=== PATIENT | male | born 1960 | race Caucasian/White ===

== ENCOUNTER → 2020-04-10 | Outpatient (CLI) | payer BC ==
[2020-04-10 11:55] LABS: HCT 45.5 % (39.0-53.0); HGB 15.3 gm/dL (13.0-17.5); MCH 32.5 pg (25.0-35.0); MCHC 33.5 g/dL (31.0-37.0); MCV 96.9 fL (80.0-100.0); Mean Platelet Volume 8.1; Platelet Count 234 k/uL (150-450); RDW 12.8 % (11.5-15.5); WBC 8.2 k/uL (3.8-10.6)
[2020-04-10 18:24] LABS: African American GFR (CKD) 109.5 (60.0-200.0); Albumin 3.9 g/dL (3.80-4.90); Albumin/Globulin Ratio 1.7 (1.60-3.17); Anion Gap 1.6 mmol/L (4.00-12.00); BUN/Creat Ratio 13.33 Ratio (12.00-20.00); Calcium 8.8 mg/dL (8.7-10.3); Carbon Dioxide 29.4 mmol/L (21.6-31.8); Globulin 2.3 g/dL (1.6-3.3); Non-African American GFR(CKD) 94.5 (60.0-200.0); Potassium 5.1 mmol/L (3.5-5.5); Total Bilirubin 0.5 mg/dL (0.2-1.2); Total Protein 6.2 g/dL (6.2-8.2)
[2020-04-10 18:25] LABS: Chol/HDL Ratio 3.83
[2020-04-10 18:53] LABS: T4, Free (Free Thyroxine) 0.9 ng/dL (0.80-1.80)
== END | disposition home or self-care (01) ==
LOC: LABWHC1 10:01
PROVIDERS: ATTEND Internal Medicine
DX: R42 Dizziness and giddiness (principal); R53.83 Other fatigue
CPT/HCPCS: 36415; 80053; 80061; 84439; 84443; 85027

== ENCOUNTER → 2020-05-03 | Outpatient (CLI) | payer BC ==
--- NOTE | 2020-05-03 16:55 | US ---
EXAMINATION TYPE: US carotid duplex BILAT DATE OF EXAM: 05/03/2020 COMPARISON: NONE CLINICAL HISTORY: R55.9 SYNCOPE, R53.82 FATIGUE. Syncope, fatigue, dizziness EXAM MEASUREMENTS: RIGHT: Peak Systolic Velocity (PSV) cm/sec ----- Right CCA: 84.1 ----- Right ICA: 77.2 ----- Right ECA: 117.9 ICA/CCA ratio: 0.9 RIGHT: End Diastole cm/sec ----- Right CCA: 23.2 ----- Right ICA: 33.0 ----- Right ECA: 18.2 LEFT: Peak Systolic Velocity (PSV) cm/sec ----- Left CCA: 90.7 ----- Left ICA: 64.6 ----- Left ECA: 103.4 ICA/CCA ratio: 0.7 LEFT: End Diastole cm/sec ----- Left CCA: 27.2 ----- Left ICA: 33.9 ----- Left ECA: 18.2 VERTEBRALS (direction of flow): Right Vertebral: Antegrade Left Vertebral: Antegrade Rhythm: Normal Bilateral intimal thickening. IMPRESSION: No evidence of hemodynamically significant stenosis bilaterally. Criteria for Assigning % of Stenosis / Diameter reduction (Estimation based on the indirect measurements of the internal carotid artery velocities (ICA PSV). 1. Normal (no stenosis)=ICA PSV < 125 cm/s: ratio < 2.0: ICA EDV<40 cm/s. 2. Less than 50% stenosis=ICA PSV < 125 cm/s: ratio < 2.0: ICA EDV<40 cm/s. 3. 50 to 69% stenosis=ICA PSV of 125 to 230 cm/s: ration 2.0 ? 4.0: ICA EDV 40-100 cm/s. 4. Greater than 70% stenosis to near occlusion= ICA PSV > 230 cm/s: ratio > 4.0: ICA EDV > 100 cm/s. 5. Near occlusion= ICA PSV velocities may be low or undetectable: variable ratio and ICA EDV. 6. Total occlusion=unable to detect flow.
--- NOTE | 2020-05-04 10:00 | ECHOF ---
Referral Reason:R55.9 syncope MEASUREMENTS -------- HEIGHT: 180.3 cm WEIGHT: 134.3 kg BP: 147/77 RVIDd: 3.3 cm (< 3.3) IVSd: 1.1 cm (0.6 - 1.1) LVIDd: 4.5 cm (3.9 - 5.3) LVPWd: 1.2 cm (0.6 - 1.1) IVSs: 1.8 cm LVIDs: 2.7 cm LVPWs: 1.2 cm LA Diam: 3.0 cm (2.7 - 3.8) LAESV Index (A-L): 18.29 ml/m Ao Diam: 3.7 cm (2.0 - 3.7) AV Cusp: 2.5 cm (1.5 - 2.6) MV EXCURSION: 21.171 mm (> 18.000) MV EF SLOPE: 100 mm/s (70 - 150) EPSS: 0.3 cm MV E Harley: 0.82 m/s MV DecT: 177 ms MV A Harley: 1.03 m/s MV E/A Ratio: 0.80 RAP: 5.00 mmHg RVSP: 27.32 mmHg FINDINGS -------- Sinus rhythm. This was a technically adequate study. The left ventricular size is normal. There is borderline concentric left ventricular hypertrophy. Overall left ventricular systolic function is normal with, an EF between 60 - 65 %. The right ventricle is mildly enlarged. Normal LA size by volume 22+/-6 ml/m2. The right atrium is normal in size. The aortic valve is trileaflet and appears structurally normal. The mitral valve is normal. Mild tricuspid regurgitation present. Right ventricular systolic pressure is normal at < 35 mmHg. Trace/mild (physiologic) pulmonic regurgitation. The aortic root size is normal. IVC Not well visulized. There is no pericardial effusion. CONCLUSIONS -------- 1. Sinus rhythm. 2. The left ventricular size is normal. 3. There is borderline concentric left ventricular hypertrophy. 4. Overall left ventricular systolic function is normal with, an EF between 60 - 65 %. 5. The right ventricle is mildly enlarged. 6. The aortic valve is trileaflet and appears structurally normal. 7. Mild tricuspid regurgitation present. 8. Right ventricular systolic pressure is normal at < 35 mmHg. 9. Trace/mild (physiologic) pulmonic regurgitation. 10. The aortic root size is normal. 11. There is no pericardial effusion. SCRIPT READER: Falguni Breen RDCS
== END | disposition home or self-care (01) ==
LOC: RADECHMAIN 13:37
PROVIDERS: ATTEND Internal Medicine
DX: R55 Syncope and collapse (principal); R53.82 Chronic fatigue, unspecified
CPT/HCPCS: 93306; 93880

== ENCOUNTER 2021-08-25 12:14 | Emergency (ER) | payer BC ==
--- NOTE | 2021-08-25 13:09 | XR ---
EXAMINATION TYPE: XR chest 2V DATE OF EXAM: 08/25/2021 COMPARISON: 07/18/2021 INDICATION: Cough TECHNIQUE: Frontal and lateral views of the chest are obtained. FINDINGS: The heart size is normal. The pulmonary vasculature is normal. No suspicious focal consolidations are evident.. Some mild scattered lower lung field infiltrates ma y be present. Correlate for atypical pneumonia or atelectasis. Findings are nonspecific. IMPRESSION: 1. Minimal bilateral lower lung field nonspecific increased lung markings. Consider atypical pneumoni a and atelectasis within the differential.
[2021-08-25] MEDS ORDERED: SODIUM CHLORIDE 0.9% 500 ML 500 ML IV STA (13:25)
[2021-08-25] MEDS ORDERED: ACETAMINOPHEN TAB 500 MG TAB PO STA (14:00)
[2021-08-25] MEDS ORDERED: KETOROLAC 15 MG/ML 1 ML VIAL IVP STA (14:00)
[2021-08-25] MEDS ORDERED: BENZONATATE 100 MG CAP PO STA (14:01)
--- NOTE | 2021-08-25 14:02 | ED ---
URI HPI - General Source: patient, RN notes reviewed Mode of arrival: ambulatory Limitations: no limitations <Damian Trammell - Last Filed: 08/25/21 14:01> <Ramesh Pinon - Last Filed: 08/25/21 16:02> - General Chief Complaint: Upper Respiratory Infection Stated Complaint: covid+/cough/lung pain Time Seen by Provider: 08/25/21 13:10 - History of Present Illness Initial Comments: This a 61-year-old male presents emergency Department chief complaint of left- sided lung, abdominal discomfort. Patient states that he tested positive on Thursday with COVID-19. He states when he lays down at nighttime is worsening symptoms states it hurts to cough, pain. Patient states she still had fevers and chills. Patient did not receive monoclonal antibodies. Patient denies any history DVT or PE denies any vomiting, diarrhea that symptoms. Patient states that he has minimal symptoms 20 sitting upright no exertional symptoms. (Damian Trammell) - Related Data Allergies Allergy/AdvReac Type Severity Reaction Status Date / Time No Known Allergies Allergy Verified 08/25/21 12:32 Review of Systems ROS Other: All systems not noted in ROS Statement are negative. <Damian Trammell - Last Filed: 08/25/21 14:01> ROS Other: All systems not noted in ROS Statement are negative. <Ramesh Pinon - Last Filed: 08/25/21 16:02> ROS Statement: Those systems with pertinent positive or pertinent negative responses have been documented in the HPI. Past Medical History Past Medical History: Thyroid Disorder History of Any Multi-Drug Resistant Organisms: None Reported Past Surgical History: No Surgical Hx Reported Past Psychological History: No Psychological Hx Reported Smoking Status: Never smoker Past Alcohol Use History: Occasional Past Drug Use History: None Reported <Damian Trammell - Last Filed: 08/25/21 14:01> General Exam Limitations: no limitations General appearance: alert, in no apparent distress Head exam: Present: atraumatic, normocephalic, normal inspection Eye exam: Present: normal appearance, PERRL, EOMI. Absent: scleral icterus, conjunctival injection, periorbital swelling ENT exam: Present: normal exam, normal oropharynx, mucous membranes moist Neck exam: Present: normal inspection, full ROM. Absent: tenderness, mening ismus, lymphadenopathy Respiratory exam: Present: normal lung sounds bilaterally, chest wall tenderness. Absent: respiratory distress, wheezes, rales, rhonchi, stridor Cardiovascular Exam: Present: normal rhythm, tachycardia, normal heart sounds. Absent: systolic murmur, diastolic murmur, rubs, gallop, clicks GI/Abdominal exam: Present: soft, tenderness (Mild epigastric), normal bowel sounds. Absent: distended, guarding, rebound, rigid <Damian Trammell - Last Filed: 08/25/21 14:01> Course Vital Signs 08/25/21 12:28 Temperature 100 F H Pulse Rate 115 H Respiratory 20 Rate Blood Pressure 99/69 O2 Sat by Pulse 95 Oximetry Medical Decision Making - Lab Data Result diagrams: 08/25/21 14:06 08/25/21 14:06 <Ramesh Pinon - Last Filed: 08/25/21 16:02> - Medical Decision Making CT had been performed to rule out pulmonary embolism. This is negative for PE, there is ground glass opacity consistent with Covid pneumonia. Patient given monoclonal antibodies in the emergency department. Additionally there was a 1.1 cm pneumomediastinum. I discussed this finding with Dr. Ontiveros who is covering for cardiothoracic surgery. From this standpoint the patient does not need further evaluation treatment at this time. Patient given return parameters worsening dyspnea, patient changes, development of chest pain. (Ramesh Pinon) - Lab Data Lab Results 08/25/21 08/25/21 08/25/21 Range/Units 14:06 14:06 14:06 WBC 5.7 (3.8-10.6) k/uL RBC 5.09 (4.30-5.90) m/uL Hgb 16.8 (13.0-17.5) gm/dL Hct 48.1 (39.0-53.0) % MCV 94.5 (80.0-100.0) fL MCH 32.9 (25.0-35.0) pg MCHC 34.8 (31.0-37.0) g/dL RDW 12.5 (11.5-15.5) % Plt Count 189 (150-450) k/uL MPV 8.4 Neutrophils % 76 % Lymphocytes % 17 % Monocytes % 5 % Eosinophils % 0 % Basophils % 1 % Neutrophils # 4.3 (1.3-7.7) k/uL Lymphocytes # 0.9 L (1.0-4.8) k/uL Monocytes # 0.3 (0-1.0) k/uL Eosinophils # 0.0 (0-0.7) k/uL Basophils # 0.0 (0-0.2) k/uL PT 10.4 (9.0-12.0) sec INR 1.0 (<1.2) APTT 23.5 (22.0-30.0) sec Sodium 134 L (137-145) mmol/L Potassium 4.6 (3.5-5.1) mmol/L Chloride 96 L (98-107) mmol/L Carbon Dioxide 28 (22-30) mmol/L Anion Gap 10 mmol/L BUN 27 H (9-20) mg/dL Creatinine 0.97 (0.66-1.25) mg/dL Est GFR (CKD-EPI)AfAm >90 (>60 ml/min/1.73 sqM) Est GFR (CKD-EPI)NonAf 86 (>60 ml/min/1.73 sqM) Glucose 122 H (74-99) mg/dL Calcium 8.5 (8.4-10.2) mg/dL Magnesium 2.3 (1.6-2.3) mg/dL Total Bilirubin 0.5 (0.2-1.3) mg/dL AST 81 H (17-59) U/L ALT 41 (4-49) U/L Alkaline Phosphatase 82 (38-126) U/L Troponin I (0.000-0.034) ng/mL NT-Pro-B Natriuret Pep pg/mL Total Protein 7.5 (6.3-8.2) g/dL Albumin 4.0 (3.5-5.0) g/dL 08/25/21 08/25/21 Range/Units 14:06 14:06 WBC (3.8-10.6) k/uL RBC (4.30-5.90) m/uL Hgb (13.0-17.5) gm/dL Hct (39.0-53.0) % MCV (80.0-100.0) fL MCH (25.0-35.0) pg MCHC (31.0-37.0) g/dL RDW (11.5-15.5) % Plt Count (150-450) k/uL MPV Neutrophils % % Lymphocytes % % Monocytes % % Eosinophils % % Basophils % % Neutrophils # (1.3-7.7) k/uL Lymphocytes # (1.0-4.8) k/uL Monocytes # (0-1.0) k/uL Eosinophils # (0-0.7) k/uL Basophils # (0-0.2) k/uL PT (9.0-12.0) sec INR (<1.2) APTT (22.0-30.0) sec Sodium (137-145) mmol/L Potassium (3.5-5.1) mmol/L Chloride (98-107) mmol/L Carbon Dioxide (22-30) mmol/L Anion Gap mmol/L BUN (9-20) mg/dL Creatinine (0.66-1.25) mg/dL Est GFR (CKD-EPI)AfAm (>60 ml/min/1.73 sqM) Est GFR (CKD-EPI)NonAf (>60 ml/min/1.73 sqM) Glucose (74-99) mg/dL Calcium (8.4-10.2) mg/dL Magnesium (1.6-2.3) mg/dL Total Bilirubin (0.2-1.3) mg/dL AST (17-59) U/L ALT (4-49) U/L Alkaline Phosphatase (38-126) U/L Troponin I <0.012 (0.000-0.034) ng/mL NT-Pro-B Natriuret Pep 54 pg/mL Total Protein (6.3-8.2) g/dL Albumin (3.5-5.0) g/dL Disposition <Damian Trammell M - Last Filed: 08/25/21 14:01> Is patient prescribed a controlled substance at d/c from ED?: No Time of Disposition: 16:02 <Ramesh Pinon - Last Filed: 08/25/21 16:02> Clinical Impression: COVID-19 Disposition: HOME SELF-CARE Condition: Fair Instructions (If sedation given, give patient instructions): Coronavirus Disease 2019 (COVID-19) Referrals: Cari Hudson MD [Primary Care Provider] - 1-2 days
[2021-08-25 14:23] LABS: Basophils % (A) 1 %; Eosinophils % (A) 0 %; HCT 48.1 % (39.0-53.0); HGB 16.8 gm/dL (13.0-17.5); Lymphocytes # (A) 0.9 k/uL (1.0-4.8); Lymphocytes % (A) 17 %; MCH 32.9 pg (25.0-35.0); MCHC 34.8 g/dL (31.0-37.0); MCV 94.5 fL (80.0-100.0); Mean Platelet Volume 8.4; Monocytes # (A) 0.3 k/uL (0-1.0); Monocytes % (A) 5 %; Neutrophils # (A) 4.3 k/uL (1.3-7.7); Neutrophils % (A) 76 %; Platelet Count 189 k/uL (150-450); RBC 5.09 m/uL (4.30-5.90); RDW 12.5 % (11.5-15.5); WBC 5.7 k/uL (3.8-10.6)
[2021-08-25 14:45] LABS: ALT 41 U/L (4-49); AST 81 U/L (17-59); African American GFR (CKD) >90 (>60 ml/min/1.73 sqM); Alkaline Phosphatase 82 U/L (38-126); Blood Urea Nitrogen 27 mg/dL (9-20); Calcium 8.5 mg/dL (8.4-10.2); Carbon Dioxide 28 mmol/L (22-30); Glucose 122 mg/dL (74-99); Magnesium 2.3 mg/dL (1.6-2.3); Non-African American GFR(CKD) 86 (>60 ml/min/1.73 sqM); Partial Thromboplastin Time 23.5 sec (22.0-30.0); Prothrombin Time 10.4 sec (9.0-12.0); Total Bilirubin 0.5 mg/dL (0.2-1.3); Total Protein 7.5 g/dL (6.3-8.2)
[2021-08-25 14:51] LABS: Anion Gap 10 mmol/L; Chloride 96 mmol/L (98-107); Potassium 4.6 mmol/L (3.5-5.1); Sodium 134 mmol/L (137-145)
--- NOTE | 2021-08-25 15:24 | CT ---
EXAMINATION TYPE: CT chest angio for PE DATE OF EXAM: 08/25/2021 COMPARISON: None HISTORY: Covid, cough, lung pain, left rib pain CT DLP: 1426.4 mGycm Automated exposure control for dose reduction was used. CONTRAST: CT Chest for pulmonary embolism performed with with IV Contrast, patient injected with 100 mL of Isov ue 370. FINDINGS: LUNGS: There is, peripheral groundglass opacities in the lungs. Visualized airways are clear. There is a 1.1 cm focus of extraluminal gas in the right paratracheal region at the thoracic inlet (s eries 4 image 139). MEDIASTINUM: There is suboptimal enhancement of the pulmonary artery and its branches, there is no CT evidence for a large central or lobar pulmonary embolism. Limited assessment of the segmental and s ubsegmental vessels. A large AP window lymph node measures 1.4 cm in short axis, likely reactive. N o pericardial effusion is seen. OTHER: No additional significant abnormality is seen. IMPRESSION: 1. There is suboptimal enhancement of the pulmonary artery and its branches, there is no CT evidence for a large central or lobar pulmonary embolism. Assessment of the segmental and subsegmental vesse ls is limited. 2. Diffuse, peripheral groundglass opacities likely on the basis of infectious/inflammatory etiology . 3. There is a 1.1 cm focus of extraluminal gas in the right paratracheal region at the thoracic inle t. This could relate to pneumomediastinum or a diverticulum.
[2021-08-25 16:02] VITALS: TEMP 98.7
[2021-08-25] MEDS ORDERED: CASIRIVIMAB/IMDEVIMAB (EUA) 1,200 MG in SODIUM CHLORIDE 0.9% 100 ML IVPB ONE (16:30)
[2021-08-25] MEDS ORDERED: SODIUM CHLORIDE 0.9% 50 ML IVPB ONE (16:30)
[2021-08-25 16:59] VITALS: RESP 20
[2021-08-25 18:29] VITALS: BP 122/79; PULSE 104
== END 2021-08-25 18:33 | disposition home or self-care (01) ==
LOC: EC 12:14
DX: U07.1 COVID-19 (principal); E07.9 Disorder of thyroid, unspecified
CPT/HCPCS: 99284; 96374; 36415; 93005; 83880; 80053; 83735; 84484; 85025; 85610; 85730; 71046; 71275; J1885; Q9967; Q0243

== ENCOUNTER 2021-08-28 17:44 | Inpatient (IN) | payer BC ==
[2021-08-28] MEDS ORDERED: DEXAMETHASONE SOD PHOSPHATE 10 MG/ML 1 ML VIAL IVP STA (18:01)
[2021-08-28 18:16] LABS: Basophils # (A) 0.1 k/uL (0-0.2); Basophils % (A) 1 %; Eosinophils # (A) 0.1 k/uL (0-0.7); Eosinophils % (A) 1 %; HCT 45.1 % (39.0-53.0); HGB 15.4 gm/dL (13.0-17.5); Lymphocytes % (A) 12 %; MCH 32.2 pg (25.0-35.0); MCHC 34.1 g/dL (31.0-37.0); MCV 94.2 fL (80.0-100.0); Mean Platelet Volume 8.1; Monocytes # (A) 0.4 k/uL (0-1.0); Monocytes % (A) 4 %; Neutrophils # (A) 6.7 k/uL (1.3-7.7); Neutrophils % (A) 78 %; Platelet Count 277 k/uL (150-450); RBC 4.79 m/uL (4.30-5.90); RDW 12.7 % (11.5-15.5); WBC 8.6 k/uL (3.8-10.6)
[2021-08-28 18:28] LABS: ALT 35 U/L (4-49); AST 72 U/L (17-59); African American GFR (CKD) >90 (>60 ml/min/1.73 sqM); Albumin 3.3 g/dL (3.5-5.0); Alkaline Phosphatase 73 U/L (38-126); Anion Gap 6 mmol/L; Blood Urea Nitrogen 17 mg/dL (9-20); Calcium 8.1 mg/dL (8.4-10.2); Carbon Dioxide 26 mmol/L (22-30); Chloride 103 mmol/L (98-107); Glucose 108 mg/dL (74-99); Non-African American GFR(CKD) >90 (>60 ml/min/1.73 sqM); Potassium 4.2 mmol/L (3.5-5.1); Sodium 135 mmol/L (137-145); Total Bilirubin 0.7 mg/dL (0.2-1.3); Total Protein 6.6 g/dL (6.3-8.2)
--- NOTE | 2021-08-28 19:03 | ED ---
General Adult HPI - General Chief complaint: Shortness of Breath Stated complaint: KO Time Seen by Provider: 08/28/21 17:50 Source: patient, EMS, RN notes reviewed, old records reviewed Mode of arrival: EMS Limitations: no limitations - History of Present Illness Initial comments: This is a 61-year-old male who presents emergency Department with a diagnosis of covert about 8 days ago he already received monoclonal antibodies knee shows up today because he is becoming much more short of breath particularly with exertion. Patient states he also continues to cough. Patient denies any chest pain or palpitations. Patient denies any swelling to her legs or calf tenderness. Patient denies abdominal pain patient denies nausea vomiting diarrhea. - Related Data Home Medications Medication Instructions Recorded Confirmed Levothyroxine Sodium [Synthroid] 75 mcg PO DAILY 08/28/21 08/28/21 Allergies Allergy/AdvReac Type Severity Reaction Status Date / Time No Known Allergies Allergy Verified 08/28/21 18:08 Review of Systems ROS Statement: Those systems with pertinent positive or pertinent negative responses have been documented in the HPI. ROS Other: All systems not noted in ROS Statement are negative. Past Medical History Past Medical History: Thyroid Disorder History of Any Multi-Drug Resistant Organisms: None Reported Past Surgical History: No Surgical Hx Reported Past Psychological History: No Psychological Hx Reported Smoking Status: Never smoker Past Alcohol Use History: Occasional Past Drug Use History: None Reported General Exam - General Exam Comments Initial Comments: GENERAL: Patient is well-developed and well-nourished. Patient is nontoxic and well- hydrated and is in mild distress. ENT: Neck is soft and supple. No significant lymphadenopathy is noted. Oropharynx is clear. Moist mucous membranes. Neck has full range of motion without eliciting any pain. EYES: The sclera were anicteric and conjunctiva were pink and moist. Extraocular movements were intact and pupils were equal round and reactive to light. Ey elids were unremarkable. PULMONARY: Patient has crackles bilateral bases. CARDIOVASCULAR: There is a regular rate and rhythm without any murmurs gallops or rubs. ABDOMEN: Soft and nontender with normal bowel sounds. SKIN: Skin is clear with no lesions or rashes and otherwise unremarkable. NEUROLOGIC: Patient is alert and oriented x3. Cranial nerves II through XII are grossly intact. Motor and sensory are also intact. Normal speech, volume and content. Symmetrical smile. MUSCULOSKELETAL: Normal extremities with adequate strength and full range of motion. LYMPHATICS: No significant lymphadenopathy is noted PSYCHIATRIC: Normal psychiatric evaluation. Limitations: no limitations Course Vital Signs 08/28/21 08/28/21 08/28/21 17:52 18:05 18:19 Temperature 98.5 F Pulse Rate 102 H Respiratory 22 20 Rate Blood Pressure 119/84 O2 Sat by Pulse 89 L 91 L Oximetry Medical Decision Making - Medical Decision Making EKG shows normal sinus rhythm at 97 bpm ME interval 138 QRS is 86 QT interval 392 QTC is 497. Patient's EKG shows no ST segment elevation or depression. Chest x-ray shows bilateral infiltrates. Patient was oxygenating 89% on room air. Patient was started on Decadron and continued on Decadron upstairs. I spoke with Dr. Hudson he agreed to admit the patient admitted the patient wrote admitting orders. - Lab Data Result diagrams: 08/28/21 18:04 08/28/21 18:04 Lab Results 08/28/21 08/28/21 Range/Units 18:04 18:04 WBC 8.6 (3.8-10.6) k/uL RBC 4.79 (4.30-5.90) m/uL Hgb 15.4 (13.0-17.5) gm/dL Hct 45.1 (39.0-53.0) % MCV 94.2 (80.0-100.0) fL MCH 32.2 (25.0-35.0) pg MCHC 34.1 (31.0-37.0) g/dL RDW 12.7 (11.5-15.5) % Plt Count 277 (150-450) k/uL MPV 8.1 Neutrophils % 78 % Lymphocytes % 12 % Monocytes % 4 % Eosinophils % 1 % Basophils % 1 % Neutrophils # 6.7 (1.3-7.7) k/uL Lymphocytes # 1.0 (1.0-4.8) k/uL Monocytes # 0.4 (0-1.0) k/uL Eosinophils # 0.1 (0-0.7) k/uL Basophils # 0.1 (0-0.2) k/uL Sodium 135 L (137-145) mmol/L Potassium 4.2 (3.5-5.1) mmol/L Chloride 103 (98-107) mmol/L Carbon Dioxide 26 (22-30) mmol/L Anion Gap 6 mmol/L BUN 17 (9-20) mg/dL Creatinine 0.52 L (0.66-1.25) mg/dL Est GFR (CKD-EPI)AfAm >90 (>60 ml/min/1.73 sqM) Est GFR (CKD-EPI)NonAf >90 (>60 ml/min/1.73 sqM) Glucose 108 H (74-99) mg/dL Calcium 8.1 L (8.4-10.2) mg/dL Total Bilirubin 0.7 (0.2-1.3) mg/dL AST 72 H (17-59) U/L ALT 35 (4-49) U/L Alkaline Phosphatase 73 (38-126) U/L Total Protein 6.6 (6.3-8.2) g/dL Albumin 3.3 L (3.5-5.0) g/dL Disposition Clinical Impression: Pneumonia due to COVID-19 virus Disposition: ADMITTED IP TO THIS HOSP Referrals: Cari Hudson MD [Primary Care Provider] - 1-2 days Time of Disposition: 19:21
[2021-08-28] MEDS ORDERED: SODIUM CHLORIDE 0.9% 1,000 ML IV ONE (19:22)
--- NOTE | 2021-08-28 19:52 | XR ---
EXAMINATION TYPE: XR chest 1V portable DATE OF EXAM: 08/28/2021 CLINICAL HISTORY: Short of breath. TECHNIQUE: Portable frontal view of the chest. COMPARISON: 08/25/2021 FINDINGS: The cardiomediastinal silhouette is within normal limits for size. There are moderate debra pheral patchy airspace opacities bilaterally, right greater than left. No pleural effusion. No pneumo thorax seen. No acute displaced osseous fracture. IMPRESSION: Moderate peripheral patchy airspace opacities. Differential includes Covid 19 pneumonia.
[2021-08-28] MEDS: ENOXAPARIN 40 MG/0.4 ML SYRINGE SQ SCH (23:05)
[2021-08-29] MEDS: ZINC SULFATE 220 MG CAP PO SCH (10:10)
[2021-08-29] MEDS: CHOLECALCIFEROL 25 MCG (1000 IU) TABLET PO SCH (10:10)
[2021-08-29] MEDS: ASCORBIC ACID 500 MG TAB PO SCH ×2 (10:10→20:48)
[2021-08-29] MEDS: DEXAMETHASONE SOD PHOSPHATE 10 MG/ML 1 ML VIAL IVP SCH (10:10)
[2021-08-29] MEDS: LEVOTHYROXINE 75 MCG TAB PO SCH (10:12)
[2021-08-29 12:15] LABS: C Reactive Protein 5.4 mg/dL (<1.0); LDH 1137 U/L (313-618)
--- NOTE | 2021-08-29 14:14 | P.CNPUL ---
History of Present Illness Consult date: 08/29/21 Requesting physician: Ryan Barton Reason for consult: dyspnea (shortness of breath), cough, hypoxemia, pneumonia, abnormal CXR/CT Chief complaint: Coughing, shortness of breath History of present illness: 61-year-old male patient of Dr. Hudson with past medical history of hypothyroidism was just recently started on levothyroxine, ex-smoker quit smoking 10 years ago, came into the emergency department on 08/28/2021 for evaluation of shortness of breath, cough. He was diagnosed with COVID-19 on 08/19 2021, and he received a monoclonal antibiotics. Patient is not vaccinated against COVID 19. He was in the emergency department again on 08/25/2021 with coughing, and left-sided abdominal discomfort with coughing, and burning in his chest with episodes of coughing. Patient was having fever and chills. CTA chest was completed and showed suboptimal enhancement of the pulmonary artery, but there was no CT evidence for a large central or lobar pulmonary embolism. Assessment of the segmental and subsegmental vessels was limited. There was diffuse peripheral groundglass opacities related to COVID-19 pneumonia, and there was 1.1 cm extraluminal gas in the right peritracheal region likely related to pneumomediastinum. Patient was released home then. Chest x-ray from this admission on 08/28/2021 showing moderate peripheral patchy airspace opacities. She is currently on 3 L of oxygen his pulse ox of 90%, afebrile, hemodynamically he is stable, he was given a dose of Decadron 10 mg in the emergency department and was started on prophylactic anticoagulation in the form of Lovenox. His admission labs show CBC within normal limits, d-dimer is 1.09, sodium is 135 and Celexa lites are unremarkable, BUN is 17 creatinine 0.5, LDH is 1137, CRP is 5.4, AST was 72, ALT and alkaline phosphatase were within normal limits. Review of Systems All systems: negative Constitutional: Reports fever, Denies chills Eyes: denies blurred vision, denies pain Ears, nose, mouth and throat: Denies headache, Denies sore throat Cardiovascular: Denies chest pain, Denies shortness of breath Respiratory: Reports dyspnea, Denies cough Gastrointestinal: Denies abdominal pain, Denies diarrhea, Denies nausea, Denies vomiting Musculoskeletal: Denies myalgias Integumentary: Denies pruritus, Denies rash Neurological: Denies numbness, Denies weakness Psychiatric: Denies anxiety, Denies depression Endocrine: Denies fatigue, Denies weight change Past Medical History Past Medical History: Thyroid Disorder History of Any Multi-Drug Resistant Organisms: None Reported Past Surgical History: No Surgical Hx Reported Past Anesthesia/Blood Transfusion Reactions: No Reported Reaction Past Psychological History: No Psychological Hx Reported Smoking Status: Never smoker Past Alcohol Use History: Occasional Past Drug Use History: None Reported Medications and Allergies Home Medications Medication Instructions Recorded Confirmed Type Levothyroxine Sodium [Synthroid] 75 mcg PO DAILY 08/28/21 08/28/21 History Allergies Allergy/AdvReac Type Severity Reaction Status Date / Time No Known Allergies Allergy Verified 08/28/21 18:08 Physical Exam Vitals: Vital Signs Temp Pulse Pulse Resp BP BP Pulse Ox 08/29/21 10:18 90 L 08/29/21 10:16 98.3 F 112 H 26 H 137/83 86 L 08/29/21 05:23 98.4 F 91 20 142/89 90 L 08/29/21 01:54 98.6 F 84 20 133/78 91 L 08/28/21 23:15 98.7 F 82 20 137/84 94 L 08/28/21 20:14 98.3 F 90 19 162/89 90 L 08/28/21 18:19 20 08/28/21 18:05 91 L 08/28/21 17:52 98.5 F 102 H 22 119/84 89 L Intake and Output 08/28/21 08/29/21 08/29/21 22:59 06:59 14:59 Other: # Voids 1 1 Weight 131.542 kg GENERAL EXAM: Alert, very pleasant, 61-year-old white male, on 3 L, with a pulse ox of 90% comfortable in no apparent distress. HEAD: Normocephalic/atraumatic. EYES: Normal reaction of pupils, equal size. Conjunctiva pink, sclera white. NOSE: Clear with pink turbinates. THROAT: No erythema or exudates. NECK: No masses, no JVD, no thyroid enlargement, no adenopathy. CHEST: No chest wall deformity. Symmetrical expansion. LUNGS: Equal air entry with diffuse bibasilar crackles CVS: Regular rate and rhythm, normal S1 and S2, no gallops, no murmurs, no rubs ABDOMEN: Soft, nontender. No hepatosplenomegaly, normal bowel sounds, no guarding or rigidity. EXTREMITIES: No clubbing, no edema, no cyanosis, 2+ pulses and upper and lower extremities. MUSCULOSKELETAL: Muscle strength and tone normal. SPINE: No scoliosis or deformity SKIN: No rashes CENTRAL NERVOUS SYSTEM: Alert and oriented -3. No focal deficits, tone is normal in all 4 extremities. PSYCHIATRIC: Alert and oriented -3. Appropriate affect. Intact judgment and insight. Results - Laboratory Findings CBC and BMP: 08/28/21 18:04 08/28/21 18:04 PT/INR, D-dimer D-Dimer 1.09 mg/L FEU (<0.60) H 08/29/21 07:19 Abnormal lab findings: Abnormal Labs 08/28/21 08/29/21 08/29/21 18:04 07:19 07:19 D-Dimer 1.09 H Sodium 135 L Creatinine 0.52 L Glucose 108 H Calcium 8.1 L AST 72 H Lactate Dehydrogenase 1137 H C-Reactive Protein 5.4 H Albumin 3.3 L - Diagnostic Findings Chest x-ray: report reviewed, image reviewed Additional studies: EKG reviewed Assessment and Plan Plan: Assessment: #1. Acute hypoxic respiratory failure related to acute COVID-19 pneumonia, and patient was diagnosed with COVID-19 on 2020, he was outside the window for Remdesivir. He is status post monoclonal antibiotic infusion. Non-v accinated against COVID-19 #2. Elevated d-dimer at 1.09 CTA chest on 08/25/2021 showed evidence of a large central pulmonary embolism #3. Increased inflammatory markers related to acute COVID-19 pneumonia #4. 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 Hypothyroidism Plan: Continue Decadron 6 mg daily Continue Lovenox Continue multivitamins We will follow d-dimer and inflammatory markers Continue to monitor for signs of worsening dyspnea or hypoxia I performed a history & physical examination of the patient and discussed their management with my nurse practitioner, Valentina Eaton. I reviewed the nurse practitioner's note and agree with the documented findings and plan of care. Lung sounds are positive for diffuse bibasilar crackles throughout the lung amato. The findings and the impression was discussed with the patient. I attest to the documentation by the nurse practitioner. Time with Patient: Greater than 30
[2021-08-29] MEDS: ALBUTEROL HFA INHALER INHALATION PRN ×2 (17:36→21:02)
--- NOTE | 2021-08-29 19:12 | P.HPIM ---
History of Present Illness H&P Date: 08/29/21 Bert Guerrier, is a 61-year-old male who presented to [facility] emergency room with a chief complaint of worsening shortness of breath and cough, patient states that he tested positive for COVID-19 2 weeks ago, at that time he received monoclonal antibody infusion, he is not vaccinated for COVID- 19. Patient was doing well until 3 days prior to this admission when he started having low-grade fever, chills, worsening cough and worsening shortness of breath, his symptoms continued to escalate and he decided to come to emergency room he was evaluated in the emergency room, vital examination on presentation revealed a temperature of 98.5 pulse 102 respiration 22 blood pressure 119/84 pulse ox 89% on room air laboratory data revealed a white blood count of 8.6 hemoglobin 15.4 platelet count 277 BUN 17 creatinine 0.5 to d-dimer was elevated at 1.09 chest x-ray revealed moderate peripheral patchy airspace opacities compatible was atypical pneumonia. patient was started on IV dexamethasone, subcu Lovenox, and inhaled bronchodilators and was admitted to medical floor for further evaluation and treatment Past Medical History Past Medical History: Thyroid Disorder History of Any Multi-Drug Resistant Organisms: None Reported Past Surgical History: No Surgical Hx Reported Past Anesthesia/Blood Transfusion Reactions: No Reported Reaction Past Psychological History: No Psychological Hx Reported Smoking Status: Never smoker Past Alcohol Use History: Occasional Past Drug Use History: None Reported Medications and Allergies Home Medications Medication Instructions Recorded Confirmed Type Levothyroxine Sodium [Synthroid] 75 mcg PO DAILY 08/28/21 08/28/21 History Allergies Allergy/AdvReac Type Severity Reaction Status Date / Time No Known Allergies Allergy Verified 08/28/21 18:08 Physical Exam Vitals: Vital Signs Temp Pulse Pulse Resp BP BP Pulse Ox 08/29/21 05:23 98.4 F 91 20 142/89 90 L 08/29/21 01:54 98.6 F 84 20 133/78 91 L 08/28/21 23:15 98.7 F 82 20 137/84 94 L 08/28/21 20:14 98.3 F 90 19 162/89 90 L 08/28/21 18:19 20 08/28/21 18:05 91 L 08/28/21 17:52 98.5 F 102 H 22 119/84 89 L Intake and Output 08/28/21 08/29/21 08/29/21 22:59 06:59 14:59 Other: # Voids 1 Weight 131.542 kg In general patient is alert and oriented ?-3 in no distress HEENT head normocephalic and atraumatic Neck is supple no JVD no goiter no lymphadenopathy no carotid bruit Chest examination reveals a crackles in both lung amato with wheezing Cardiac exam reveals regular heart sounds S1 and S2 no gallops no murmurs Abdomen is soft nontender no organomegaly with normal bowel sounds Extremity exam reveals no edema no cyanosis or clubbing Neurological examination reveals no gross focal deficits Results CBC & Chem 7: 08/28/21 18:04 08/28/21 18:04 Labs: Abnormal Lab Results - Last 24 Hours (Table) 08/28/21 08/29/21 Range/Units 18:04 07:19 D-Dimer 1.09 H (<0.60) mg/L FEU Sodium 135 L (137-145) mmol/L Creatinine 0.52 L (0.66-1.25) mg/dL Glucose 108 H (74-99) mg/dL Calcium 8.1 L (8.4-10.2) mg/dL AST 72 H (17-59) U/L Albumin 3.3 L (3.5-5.0) g/dL Thrombosis Risk Factor Assmnt - Choose All That Apply Each Factor Represents 1 point: Age 41-60 years Other Risk Factors: No Other congenital or acquired thrombophilia - If yes, enter type in comment: No Thrombosis Risk Factor Assessment Total Risk Factor Score: 1 Thrombosis Risk Factor Assessment Level: Low Risk Assessment and Plan Plan: Acute COVID-19 pneumonia Acute hypoxic respiratory failure Elevated d-dimer with negative CT angiogram of the chest on 08/25/2021 for pulmonary embolism, patient started on subcu Lovenox Underlying history of COPD, patient is a previous smoker Underlying history of hypothyroidism maintained on Synthroid At this time patient is admitted to medical floor he was started on IV dexa methasone and subcu Lovenox He is also maintained on albuterol inhaler He received monoclonal antibodies 2 weeks ago He is out of the therapeutic window for REMDESEVIR We'll add cough medicine with codeine per patient request Medication and labs were reviewed pulmonary consultation requested will follow closely
[2021-08-29] MEDS: guaiFENesin-Coden 100-10MG/5ML 10 ML CUP PO PRN (20:48)
[2021-08-29] MEDS: ENOXAPARIN 40 MG/0.4 ML SYRINGE SQ SCH (20:48)
[2021-08-30] MEDS: guaiFENesin-Coden 100-10MG/5ML 10 ML CUP PO PRN ×2 (05:32→20:32)
[2021-08-30] MEDS: LEVOTHYROXINE 75 MCG TAB PO SCH (05:32)
[2021-08-30] MEDS: ASCORBIC ACID 500 MG TAB PO SCH ×2 (07:19→20:33)
[2021-08-30] MEDS: CHOLECALCIFEROL 25 MCG (1000 IU) TABLET PO SCH (07:19)
[2021-08-30] MEDS: ZINC SULFATE 220 MG CAP PO SCH (07:20)
[2021-08-30] MEDS: DEXAMETHASONE SOD PHOSPHATE 10 MG/ML 1 ML VIAL IVP SCH (07:20)
[2021-08-30] MEDS: ALBUTEROL HFA INHALER INHALATION PRN ×3 (08:40→16:21)
[2021-08-30 09:14] LABS: HCT 43.2 % (39.6-50.0); HGB 14.4 g/dL (13.0-17.0); MCHC 33.3 g/dL (32.0-37.0); Mean Platelet Volume 10.4 fL (9.5-12.2); Platelet Count 392 X 10*3/uL (140-440); RDW 12.5 % (11.5-14.5); WBC 11.77 X 10*3/uL (4.50-10.00)
[2021-08-30 10:50] LABS: Basophils # (A) 0.05 X 10*3/uL (0.00-0.10); Basophils % (A) 0.4 %; Eosinophils # (A) 0 X 10*3/uL (0.04-0.35); Eosinophils % (A) 0 %; Lymphocytes # (A) 1.12 X 10*3/uL (0.90-5.00); Lymphocytes % (A) 9.5 %; Monocytes # (A) 0.76 X 10*3/uL (0.20-1.00); Monocytes % (A) 6.5 %; Neutrophils # (A) 9.74 X 10*3/uL (1.80-7.70); Neutrophils % (A) 82.8 %
--- NOTE | 2021-08-30 11:57 | P.PN ---
Subjective Progress Note Date: 08/30/21 Principal diagnosis: Dyspnea, COVID-19 61-year-old male patient of Dr. Hudson with past medical history of hypothyroidism was just recently started on levothyroxine, ex-smoker quit smoking 10 years ago, came into the emergency department on 08/28/2021 for evaluation of shortness of breath, cough. He was diagnosed with COVID-19 on 08/19 2021, and he received a monoclonal antibiotics. Patient is not vaccinated against COVID 19. He was in the emergency department again on 08/25/2021 with coughing, and left-sided abdominal discomfort with coughing, and burning in his chest with episodes of coughing. Patient was having fever and chills. CTA chest was completed and showed suboptimal enhancement of the pulmonary artery, but there was no CT evidence for a large central or lobar pulmonary embolism. Assessment of the segmental and subsegmental vessels was limited. There was diffuse peripheral groundglass opacities related to COVID-19 pneumonia, and there was 1.1 cm extraluminal gas in the right peritracheal region likely related to pneumomediastinum. Patient was released home then. Chest x-ray from this admission on 08/28/2021 showing moderate peripheral patchy airspace opacities. She is currently on 3 L of oxygen his pulse ox of 90%, afebrile, hemodynamically he is stable, he was given a dose of Decadron 10 mg in the emergency department and was started on prophylactic anticoagulation in the form of Lovenox. His admission labs show CBC within normal limits, d-dimer is 1.09, sodium is 135 and Celexa lites are unremarkable, BUN is 17 creatinine 0.5, LDH is 1137, CRP is 5.4, AST was 72, ALT and alkaline phosphatase were within normal limits. On 08/30/2021 patient seen in follow-up on medical surgical floor. He is sitting up in the recliner, still coughs a lot, and short of breath with exertion, is currently on 8 L of oxygen pulse ox is 95%, afebrile. No chest pain, blood pressure stable, lung sounds reveal coarse bibasilar crackles, no wheezing. Patient remains on Decadron 6 mg daily, vitamins, and Lovenox. Tolerating oral intake, no nausea vomiting or diarrhea. Objective - Vital Signs Vital signs: Vital Signs Temp 97.9 F 08/30/21 10:27 Pulse 97 08/30/21 10:27 Resp 16 08/30/21 10:27 BP 115/80 08/30/21 10:27 Pulse Ox 94 L 08/30/21 10:27 Intake & Output 08/29/21 08/30/21 08/30/21 18:59 06:59 18:59 Other: # Voids 1 2 - Exam GENERAL EXAM: Alert, very pleasant, 61-year-old white male, on 8 L, with a pulse ox of 94-95%% comfortable in no apparent distress. HEAD: Normocephalic/atraumatic. EYES: Normal reaction of pupils, equal size. Conjunctiva pink, sclera white. NOSE: Clear with pink turbinates. THROAT: No erythema or exudates. NECK: No masses, no JVD, no thyroid enlargement, no adenopathy. CHEST: No chest wall deformity. Symmetrical expansion. LUNGS: Equal air entry with diffuse bibasilar crackles CVS: Regular rate and rhythm, normal S1 and S2, no gallops, no murmurs, no rubs ABDOMEN: Soft, nontender. No hepatosplenomegaly, normal bowel sounds, no guarding or rigidity. EXTREMITIES: No clubbing, no edema, no cyanosis, 2+ pulses and upper and lower extremities. MUSCULOSKELETAL: Muscle strength and tone normal. SPINE: No scoliosis or deformity SKIN: No rashes CENTRAL NERVOUS SYSTEM: Alert and oriented -3. No focal deficits, tone is normal in all 4 extremities. PSYCHIATRIC: Alert and oriented -3. Appropriate affect. Intact judgment and insight. - Labs CBC & Chem 7: 08/30/21 05:25 08/28/21 18:04 Labs: Abnormal Lab Results - Last 24 Hours (Table) 08/29/21 08/30/21 08/30/21 Range/Units 07:19 05:25 05:25 WBC 11.77 H (4.50-10.00) X 10*3/uL Immature Gran # 0.10 H (0.00-0.04) X 10*3/uL Neutrophils # 9.74 H (1.80-7.70) X 10*3/uL Eosinophils # 0 L (0.04-0.35) X 10*3/uL D-Dimer 0.94 H (<0.60) mg/L FEU Lactate Dehydrogenase 1137 H (313-618) U/L C-Reactive Protein 5.4 H (<1.0) mg/dL Assessment and Plan Plan: Assessment: #1. Acute hypoxic respiratory failure related to acute COVID-19 pneumonia, and patient was diagnosed with COVID-19 on 2020, he was outside the window for Remdesivir. He is status post monoclonal antibody infusion. Non-vaccinated against COVID-19 #2. Elevated d-dimer at 1.09 CTA chest on 08/25/2021 showed NO evidence of a large central pulmonary embolism, however this was a suboptimal enhancement of the pulmonary artery and its branches #3. Increased inflammatory markers related to acute COVID-19 pneumonia #4. 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 Hypothyroidism Plan: Patient oxygen requirements have progressed, patient is currently at 8 L of oxygen pulse ox is 94-95%, Patient is in no acute distress, but dyspneic with exertion, and coughing Continue current dose Decadron Continue prophylactic Lovenox We'll continue to monitor for progressive dyspnea and hypoxia If further worsening we will consider Baricitinib Obtain follow up inflammatory markers and d-dimer Check lower extremity dopplers for DVT I performed a history & physical examination of the patient and discussed their management with my nurse practitioner, Valentina Eaton. I reviewed the nurse practitioner's note and agree with the documented findings and plan of care. Lung sounds are positive for diffuse bibasilar crackles throughout the lung amato. The findings and the impression was discussed with the patient. I attest to the documentation by the nurse practitioner. Time with Patient: Less than 30
[2021-08-30 13:07] LABS: African American GFR (CKD) 128.3 (60.0-200.0); Albumin 3.5 g/dL (3.8-4.9); Albumin/Globulin Ratio 1.13 (1.60-3.17); Anion Gap 13.2 mmol/L (4.00-12.00); BUN/Creat Ratio 32.09 Ratio (12.00-20.00); C Reactive Protein 2.3 mg/dL (0.00-0.80); Calcium 8.5 mg/dL (8.7-10.3); Globulin 3.1 g/dL (1.6-3.3); Non-African American GFR(CKD) 110.7 (60.0-200.0); Potassium 4.6 mmol/L (3.5-5.5); Total Bilirubin 0.4 mg/dL (0.30-1.20); Total Protein 6.5 g/dL (6.2-8.2)
--- NOTE | 2021-08-30 13:50 | P.PN ---
Subjective Progress Note Date: 08/30/21 Bert Guerrier, is a 61-year-old male who presented to [facility] emergency room with a chief complaint of worsening shortness of breath and cough, patient states that he tested positive for COVID-19 2 weeks ago, at that time he received monoclonal antibody infusion, he is not vaccinated for COVID- 19. Patient was doing well until 3 days prior to this admission when he started having low-grade fever, chills, worsening cough and worsening shortness of breath, his symptoms continued to escalate and he decided to come to emergency room he was evaluated in the emergency room, vital examination on presentation revealed a temperature of 98.5 pulse 102 respiration 22 blood pressure 119/84 pulse ox 89% on room air laboratory data revealed a white blood count of 8.6 hemoglobin 15.4 platelet count 277 BUN 17 creatinine 0.5 to d-dimer was elevated at 1.09 chest x-ray revealed moderate peripheral patchy airspace opacities compatible was atypical pneumonia. patient was started on IV dexamethasone, subcu Lovenox, and inhaled bronchodilators and was admitted to medical floor for further evaluation and treatment On 08/30/2021 patient was seen and examined on the medical floor, he is alert and oriented 3 in no apparent distress he is still maintained on oxygen 8 L/m via high flow cannula, he is complaining of shortness of breath and cough and generalized weakness otherwise he denies any complaints there is no fever or chills no headache or dizziness no chest pain no nausea or vomiting no abdominal pain no diarrhea no blood in the stools no burning with urination no frequency or urgency and no hematuria Objective - Vital Signs Vital signs: Vital Signs Temp 97.9 F 08/30/21 10:27 Pulse 97 08/30/21 10:27 Resp 16 08/30/21 10:27 BP 115/80 08/30/21 10:27 Pulse Ox 94 L 08/30/21 10:27 Intake & Output 08/29/21 08/30/21 08/30/21 18:59 06:59 18:59 Other: # Voids 1 2 - Exam In general patient is alert and oriented x 3 in no distress HEENT head normocephalic and atraumatic Neck is supple no JVD no goiter no lymphadenopathy no carotid bruit Chest examination reveals a crackles in both lung amato with wheezing Cardiac exam reveals regular heart sounds S1 and S2 no gallops no murmurs Abdomen is soft nontender no organomegaly with normal bowel sounds Extremity exam reveals no edema no cyanosis or clubbing Neurological examination reveals no gross focal deficits - Labs CBC & Chem 7: 08/30/21 05:25 08/30/21 05:25 Labs: Abnormal Lab Results - Last 24 Hours (Table) 08/29/21 08/30/21 08/30/21 Range/Units 07:19 05:25 05:25 WBC 11.77 H (4.50-10.00) X 10*3/uL D-Dimer 0.94 H (<0.60) mg/L FEU Lactate Dehydrogenase 1137 H (313-618) U/L C-Reactive Protein 5.4 H (<1.0) mg/dL Assessment and Plan Plan: Acute COVID-19 pneumonia Acute hypoxic respiratory failure Elevated d-dimer with negative CT angiogram of the chest on 08/25/2021 for pulmonary embolism, patient started on subcu Lovenox Underlying history of COPD, patient is a previous smoker Underlying history of hypothyroidism maintained on Synthroid At this time patient is admitted to medical floor he was started on IV dexamethasone and subcu Lovenox He is also maintained on albuterol inhaler He received monoclonal antibodies 2 weeks ago He is out of the therapeutic window for REMDESEVIR We'll add cough medicine with codeine per patient request Medication and labs were reviewed pulmonary consultation requested will follow gretchen wilson
--- NOTE | 2021-08-30 14:16 | US ---
EXAMINATION TYPE: US venous doppler duplex LE BI DATE OF EXAM: 08/30/2021 2:03 PM COMPARISON: NONE CLINICAL HISTORY: elevated d-dimer. Covid 19 infection, shortness of breath, pneumonia Exam done portable SIDE PERFORMED: Bilateral TECHNIQUE: The lower extremity deep venous system is examined utilizing real time linear array sonog sierra with graded compression, doppler sonography and color-flow sonography. VESSELS IMAGED: Common Femoral Vein Deep Femoral Vein Greater Saphenous Vein * Femoral Vein Popliteal Vein Small Saphenous Vein * Proximal Calf Veins (* superficial vessels) There is normal flow, compressibility, vascular waveforms. Right Leg: Appears negative for DVT Left Leg: Appears negative for DVT IMPRESSION: No evident deep venous thrombosis within the lower extremity from the lobe of the knees c entrally
[2021-08-30] MEDS: ENOXAPARIN 40 MG/0.4 ML SYRINGE SQ SCH (20:32)
[2021-08-31] MEDS: LEVOTHYROXINE 75 MCG TAB PO SCH (05:47)
[2021-08-31] MEDS: ALBUTEROL HFA INHALER INHALATION PRN ×4 (05:49→21:26)
[2021-08-31] MEDS: ASCORBIC ACID 500 MG TAB PO SCH ×2 (07:51→19:42)
[2021-08-31] MEDS: ZINC SULFATE 220 MG CAP PO SCH (07:51)
[2021-08-31] MEDS: CHOLECALCIFEROL 25 MCG (1000 IU) TABLET PO SCH (07:51)
[2021-08-31] MEDS: DEXAMETHASONE SOD PHOSPHATE 10 MG/ML 1 ML VIAL IVP SCH (07:52)
--- NOTE | 2021-08-31 12:59 | P.PN ---
Subjective Progress Note Date: 08/31/21 Principal diagnosis: COVID-19 pneumonia 61-year-old male patient of Dr. Hudson with past medical history of hypothyroidism was just recently started on levothyroxine, ex-smoker quit smoking 10 years ago, came into the emergency department on 08/28/2021 for evaluation of shortness of breath, cough. He was diagnosed with COVID-19 on 08/19 2021, and he received a monoclonal antibiotics. Patient is not vaccinated against COVID 19. He was in the emergency department again on 08/25/2021 with coughing, and left-sided abdominal discomfort with coughing, and burning in his chest with episodes of coughing. Patient was having fever and chills. CTA chest was completed and showed suboptimal enhancement of the pulmonary artery, but there was no CT evidence for a large central or lobar pulmonary embolism. Assessment of the segmental and subsegmental vessels was limited. There was diffuse peripheral groundglass opacities related to COVID-19 pneumonia, and there was 1.1 cm extraluminal gas in the right peritracheal region likely related to pneumomediastinum. Patient was released home then. Chest x-ray from this admission on 08/28/2021 showing moderate peripheral patchy airspace opacities. She is currently on 3 L of oxygen his pulse ox of 90%, afebrile, hemodynamically he is stable, he was given a dose of Decadron 10 mg in the emergency department and was started on prophylactic anticoagulation in the form of Lovenox. His admission labs show CBC within normal limits, d-dimer is 1.09, sodium is 135 and Celexa lites are unremarkable, BUN is 17 creatinine 0.5, LDH is 1137, CRP is 5.4, AST was 72, ALT and alkaline phosphatase were within normal limits. On 08/30/2021 patient seen in follow-up on medical surgical floor. He is sitting up in the recliner, still coughs a lot, and short of breath with exertion, is currently on 8 L of oxygen pulse ox is 95%, afebrile. No chest pain, blood pressure stable, lung sounds reveal coarse bibasilar crackles, no wheezing. Patient remains on Decadron 6 mg daily, vitamins, and Lovenox. Tolerating oral intake, no nausea vomiting or diarrhea. The patient is seen today 08/31/2021 in follow-up on the regular medical floor. He is currently sitting up in a chair at the bedside. Awake and alert in no acute distress. He is breathing about the same today as compared to yesterday. He is still requiring 10 L high flow nasal cannula to maintain O2 saturation in the 90s. Dopplers of the lower extremity were negative for DVT. D-dimer 0.82. He is continued on Decadron, Lovenox, vitamin supplements. Objective - Vital Signs Vital signs: Vital Signs Temp 97.7 F 08/31/21 11:09 Pulse 102 H 08/31/21 11:09 Resp 22 08/31/21 11:09 BP 122/79 08/31/21 11:09 Pulse Ox 93 L 08/31/21 11:09 Intake & Output 08/30/21 08/31/21 08/31/21 18:59 06:59 18:59 Other: Voiding Method Toilet Bedside Commode Urinal # Voids 3 0 # Bowel Movements 1 0 - Exam GENERAL EXAM: Alert, very pleasant 61-year-old gentleman, on 10 L high flow nasal cannula, fairly comfortable in no apparent distress. HEAD: Normocephalic. EYES: Normal reaction of pupils, equal size. NOSE: Clear with pink turbinates. THROAT: No erythema or exudates. NECK: No masses, no JVD. CHEST: No chest wall deformity. LUNGS: Equal air entry with crackles in the bilateral bases. CVS: S1 and S2 normal with no audible murmur, regular rhythm. ABDOMEN: No hepatosplenomegaly, normal bowel sounds, no guarding or rigidity. SPINE: No scoliosis or deformity SKIN: No rashes CENTRAL NERVOUS SYSTEM: No focal deficits, tone is normal in all 4 extremities. EXTREMITIES: There is no peripheral edema. No clubbing, no cyanosis. Peripheral pulses are intact. - Labs CBC & Chem 7: 08/30/21 05:25 08/30/21 05:25 Labs: Abnormal Lab Results - Last 24 Hours (Table) 08/30/21 08/31/21 Range/Units 05:25 06:34 D-Dimer 0.82 H (<0.60) mg/L FEU Anion Gap 13.20 H (4.00-12.00) mmol/L BUN/Creatinine Ratio 32.09 H (12.00-20.00) Ratio Glucose 128 H (70-110) mg/dL Calcium 8.5 L (8.7-10.3) mg/dL AST 55 H (14-35) U/L Lactate Dehydrogenase 378 H (120-246) U/L C-Reactive Protein 2.30 H (0.00-0.80) mg/dL Albumin 3.5 L (3.8-4.9) g/dL Albumin/Globulin Ratio 1.13 L (1.60-3.17) g/dL Assessment and Plan Assessment: 1 Acute hypoxic respiratory failure related to acute COVID-19 pneumonia, and patient was diagnosed with COVID-19 on 2020, he was outside the window for Remdesivir. He is status post monoclonal antibody infusion. 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 Joseph Titrate down the FiO2 as tolerated Increase his activity as tolerated Continue Lovenox, Decadron, vitamin supplements Follow-up labs in the a.m. We will continue to follow I, the cosigning physician, performed a history & physical examination of the patient. Lungs sounds with crackles in posterior bases. Maintaining good O2 saturations in the 90s on 10 L high flow nasal cannula. I discussed the assessment and plan of care with my nurse practitioner, Rae Colon. I attest to the above note as dictated by her.
--- NOTE | 2021-08-31 13:28 | P.PN ---
Subjective Progress Note Date: 08/31/21 Bert Guerrier, is a 61-year-old male who presented to [facility] emergency room with a chief complaint of worsening shortness of breath and cough, patient states that he tested positive for COVID-19 2 weeks ago, at that time he received monoclonal antibody infusion, he is not vaccinated for COVID- 19. Patient was doing well until 3 days prior to this admission when he started having low-grade fever, chills, worsening cough and worsening shortness of breath, his symptoms continued to escalate and he decided to come to emergency room he was evaluated in the emergency room, vital examination on presentation revealed a temperature of 98.5 pulse 102 respiration 22 blood pressure 119/84 pulse ox 89% on room air laboratory data revealed a white blood count of 8.6 hemoglobin 15.4 platelet count 277 BUN 17 creatinine 0.5 to d-dimer was elevated at 1.09 chest x-ray revealed moderate peripheral patchy airspace opacities compatible was atypical pneumonia. patient was started on IV dexamethasone, subcu Lovenox, and inhaled bronchodilators and was admitted to medical floor for further evaluation and treatment On 08/30/2021 patient was seen and examined on the medical floor, he is alert and oriented 3 in no apparent distress he is still maintained on oxygen 8 L/m via high flow cannula, he is complaining of shortness of breath and cough and generalized weakness otherwise he denies any complaints there is no fever or chills no headache or dizziness no chest pain no nausea or vomiting no abdominal pain no diarrhea no blood in the stools no burning with urination no frequency or urgency and no hematuria On 08/31/2021 patient was seen and examined on the medical floor he is alert and oriented 3 in no apparent distress he is still complaining of cough and shortness of breath otherwise he denies any complaints there is no fever or chills no headache or dizziness no chest pain no nausea or vomiting no abdominal pain no diarrhea no blood in the stools no burning with urination no frequency or urgency no hematuria vital examination reveals a temperature of 97.7 pulse 102 respiration 22 blood pressure 122/79 pulse ox 93% on 10 L high flow cannula white blood count is 11.7 hemoglobin 14.4 platelet count 392 d-dimer 0.94 sodium 140 potassium 4.6 chloride 104 CO2 22 BUN 19 creatinine 0.6 bilateral lower extremity Doppler were negative for DVT Objective - Vital Signs Vital signs: Vital Signs Temp 97.7 F 08/31/21 11:09 Pulse 102 H 08/31/21 11:09 Resp 22 08/31/21 11:09 BP 122/79 08/31/21 11:09 Pulse Ox 93 L 08/31/21 11:09 Intake & Output 08/30/21 08/31/21 08/31/21 18:59 06:59 18:59 Other: Voiding Method Toilet Bedside Commode Urinal # Voids 3 0 # Bowel Movements 1 0 - Exam In general patient is alert and oriented x 3 in no distress HEENT head normocephalic and atraumatic Neck is supple no JVD no goiter no lymphadenopathy no carotid bruit Chest examination reveals a crackles in both lung amato with wheezing Cardiac exam reveals regular heart sounds S1 and S2 no gallops no murmurs Abdomen is soft nontender no organomegaly with normal bowel sounds Extremity exam reveals no edema no cyanosis or clubbing Neurological examination reveals no gross focal deficits - Labs CBC & Chem 7: 08/30/21 05:25 08/30/21 05:25 Labs: Abnormal Lab Results - Last 24 Hours (Table) 08/31/21 Range/Units 06:34 D-Dimer 0.82 H (<0.60) mg/L FEU Assessment and Plan Plan: Acute COVID-19 pneumonia Acute hypoxic respiratory failure Elevated d-dimer with negative CT angiogram of the chest on 08/25/2021 for pulmonary embolism, patient started on subcu Lovenox Underlying history of COPD, patient is a previous smoker Underlying history of hypothyroidism maintained on Synthroid At this time patient is admitted to medical floor he was started on IV dexamethasone and subcu Lovenox He is also maintained on albuterol inhaler He received monoclonal antibodies 2 weeks ago He is out of the therapeutic window for REMDESEVIR We'll add cough medicine with codeine per patient request Medication and labs were reviewed pulmonary consultation requested will follow closely
--- NOTE | 2021-08-31 15:47 | XR ---
EXAMINATION TYPE: XR chest 1V portable DATE OF EXAM: 08/31/2021 COMPARISON: 08/28/2021 HISTORY: Short of breath TECHNIQUE: Single view FINDINGS: There is peripheral symmetric pulmonary infiltrates. Heart size is fairly normal. There is no gross heart failure. IMPRESSION: Moderate peripheral pulmonary infiltrates without change compared to recent exam.
[2021-08-31] MEDS: ENOXAPARIN 40 MG/0.4 ML SYRINGE SQ SCH (19:42)
[2021-09-01] MEDS: LEVOTHYROXINE 75 MCG TAB PO SCH (05:50)
[2021-09-01] MEDS: ALBUTEROL HFA INHALER INHALATION PRN ×4 (07:22→20:12)
[2021-09-01] MEDS: CHOLECALCIFEROL 25 MCG (1000 IU) TABLET PO SCH (07:40)
[2021-09-01] MEDS: ZINC SULFATE 220 MG CAP PO SCH (07:40)
[2021-09-01] MEDS: ASCORBIC ACID 500 MG TAB PO SCH ×2 (07:40→20:25)
[2021-09-01] MEDS: DEXAMETHASONE SOD PHOSPHATE 10 MG/ML 1 ML VIAL IVP SCH (07:41)
[2021-09-01 09:02] LABS: C Reactive Protein 1.2 mg/dL (0.00-0.80)
[2021-09-01 09:04] LABS: African American GFR (CKD) 127.1 (60.0-200.0); Albumin 3.5 g/dL (3.8-4.9); Albumin/Globulin Ratio 1.13 (1.60-3.17); Anion Gap 11.1 mmol/L (4.00-12.00); BUN/Creat Ratio 29.92 Ratio (12.00-20.00); Blood Urea Nitrogen 18.1 mg/dL (9.0-27.0); Calcium 8.7 mg/dL (8.7-10.3); Carbon Dioxide 24.1 mmol/L (21.6-31.8); Globulin 3.1 g/dL (1.6-3.3); Non-African American GFR(CKD) 109.7 (60.0-200.0); Potassium 4.2 mmol/L (3.5-5.5); Total Bilirubin 0.6 mg/dL (0.30-1.20); Total Protein 6.6 g/dL (6.2-8.2)
--- NOTE | 2021-09-01 09:43 | XR ---
EXAMINATION TYPE: XR chest 1V portable DATE OF EXAM: 09/01/2021 COMPARISON: 08/31/2021 HISTORY: 61 years Male. STUDY INDICATION GIVEN: CoVID pneumonia . TECHNIQUE: AP chest radiograph IMPRESSION: Relatively unchanged appearance of the lung with redemonstration of bilateral airspace and interstiti al opacities. No pneumothorax or large effusion. Stable cardiomediastinal silhouette.
[2021-09-01 10:17] LABS: Basophils # (A) 0.02 X 10*3/uL (0.00-0.10); Basophils % (A) 0.2 %; Eosinophils # (A) 0.03 X 10*3/uL (0.04-0.35); Eosinophils % (A) 0.3 %; HCT 44.7 % (39.6-50.0); HGB 14.6 g/dL (13.0-17.0); Lymphocytes # (A) 1.29 X 10*3/uL (0.90-5.00); Lymphocytes % (A) 11.1 %; MCH 31.1 pg (27.0-32.0); MCHC 32.7 g/dL (32.0-37.0); MCV 95.3 fL (80.0-97.0); Mean Platelet Volume 10.2 fL (9.5-12.2); Monocytes % (A) 9.4 %; Neutrophils # (A) 9.07 X 10*3/uL (1.80-7.70); Neutrophils % (A) 77.7 %; Platelet Count 451 X 10*3/uL (140-440); RBC 4.69 X 10*6/uL (4.40-5.60); RDW 12.5 % (11.5-14.5); WBC 11.66 X 10*3/uL (4.50-10.00)
--- NOTE | 2021-09-01 12:34 | P.PN ---
Subjective Progress Note Date: 09/01/21 Bert Guerrier, is a 61-year-old male who presented to [facility] emergency room with a chief complaint of worsening shortness of breath and cough, patient states that he tested positive for COVID-19 2 weeks ago, at that time he received monoclonal antibody infusion, he is not vaccinated for COVID- 19. Patient was doing well until 3 days prior to this admission when he started having low-grade fever, chills, worsening cough and worsening shortness of breath, his symptoms continued to escalate and he decided to come to emergency room he was evaluated in the emergency room, vital examination on presentation revealed a temperature of 98.5 pulse 102 respiration 22 blood pressure 119/84 pulse ox 89% on room air laboratory data revealed a white blood count of 8.6 hemoglobin 15.4 platelet count 277 BUN 17 creatinine 0.5 to d-dimer was elevated at 1.09 chest x-ray revealed moderate peripheral patchy airspace opacities compatible was atypical pneumonia. patient was started on IV dexamethasone, subcu Lovenox, and inhaled bronchodilators and was admitted to medical floor for further evaluation and treatment On 08/30/2021 patient was seen and examined on the medical floor, he is alert and oriented 3 in no apparent distress he is still maintained on oxygen 8 L/m via high flow cannula, he is complaining of shortness of breath and cough and generalized weakness otherwise he denies any complaints there is no fever or chills no headache or dizziness no chest pain no nausea or vomiting no abdominal pain no diarrhea no blood in the stools no burning with urination no frequency or urgency and no hematuria On 08/31/2021 patient was seen and examined on the medical floor he is alert and oriented 3 in no apparent distress he is still complaining of cough and shortness of breath otherwise he denies any complaints there is no fever or chills no headache or dizziness no chest pain no nausea or vomiting no abdominal pain no diarrhea no blood in the stools no burning with urination no frequency or urgency no hematuria vital examination reveals a temperature of 97.7 pulse 102 respiration 22 blood pressure 122/79 pulse ox 93% on 10 L high flow cannula white blood count is 11.7 hemoglobin 14.4 platelet count 392 d-dimer 0.94 sodium 140 potassium 4.6 chloride 104 CO2 22 BUN 19 creatinine 0.6 bilateral lower extremity Doppler were negative for DVT On 09/01/2021 patient was seen and examined on the medical floor he is alert and oriented 3 in no apparent distress he is still complaining of cough and shortness of breath otherwise he denies any complaints there is no fever or chills no headache or dizziness no chest pain no nausea or vomiting no abdominal pain no diarrhea no blood in the stools no burning with urination no frequency or urgency no hematuria vital examination reveals a temperature of 98.2 pulse 76 respiration 20 blood pressure 115/77 pulse ox 94% on 7 L high flow cannula white blood count is 11.66 hemoglobin 14.6 platelet count 451 d-dimer 0.85 sodium 139 potassium 4.2 chloride 104 CO2 22 BUN 18.1 creatinine 0.6 bilateral lower extremity Doppler were negative for DVT Objective - Vital Signs Vital signs: Vital Signs Temp 97.6 F 09/01/21 10:00 Pulse 97 09/01/21 10:00 Resp 22 09/01/21 10:00 BP 111/78 09/01/21 10:00 Pulse Ox 94 L 09/01/21 10:00 Intake & Output 08/31/21 09/01/21 09/01/21 18:59 06:59 18:59 Other: Voiding Method Toilet Toilet Bedside Commode Bedside Commode Urinal Urinal # Voids 3 5 # Bowel Movements 0 1 - Exam In general patient is alert and oriented x 3 in no distress HEENT head normocephalic and atraumatic Neck is supple no JVD no goiter no lymphadenopathy no carotid bruit Chest examination reveals a crackles in both lung amato with wheezing Cardiac exam reveals regular heart sounds S1 and S2 no gallops no murmurs Abdomen is soft nontender no organomegaly with normal bowel sounds Extremity exam reveals no edema no cyanosis or clubbing Neurological examination reveals no gross focal deficits - Labs CBC & Chem 7: 09/01/21 06:36 09/01/21 06:36 Labs: Abnormal Lab Results - Last 24 Hours (Table) 08/29/21 09/01/21 09/01/21 Range/Units 18:47 06:36 06:36 WBC (4.50-10.00) X 10*3/uL Plt Count (140-440) X 10*3/uL Immature Gran # (0.00-0.04) X 10*3/uL Neutrophils # (1.80-7.70) X 10*3/uL Monocytes # (0.20-1.00) X 10*3/uL Eosinophils # (0.04-0.35) X 10*3/uL D-Dimer 0.85 H (<0.60) mg/L FEU BUN/Creatinine Ratio 29.92 H (12.00-20.00) Ratio AST 47 H (14-35) U/L ALT 73 H (10-49) U/L Lactate Dehydrogenase 275 H (120-246) U/L C-Reactive Protein 1.20 H (0.00-0.80) mg/dL Albumin 3.5 L (3.8-4.9) g/dL Albumin/Globulin Ratio 1.13 L (1.60-3.17) g/dL Coronavirus (PCR) Detected A (Not Detected) 09/01/21 Range/Units 06:36 WBC 11.66 H (4.50-10.00) X 10*3/uL Plt Count 451 H (140-440) X 10*3/uL Immature Gran # 0.15 H (0.00-0.04) X 10*3/uL Neutrophils # 9.07 H (1.80-7.70) X 10*3/uL Monocytes # 1.10 H (0.20-1.00) X 10*3/uL Eosinophils # 0.03 L (0.04-0.35) X 10*3/uL D-Dimer (<0.60) mg/L FEU BUN/Creatinine Ratio (12.00-20.00) Ratio AST (14-35) U/L ALT (10-49) U/L Lactate Dehydrogenase (120-246) U/L C-Reactive Protein (0.00-0.80) mg/dL Albumin (3.8-4.9) g/dL Albumin/Globulin Ratio (1.60-3.17) g/dL Coronavirus (PCR) (Not Detected) Assessment and Plan Plan: Acute COVID-19 pneumonia Acute hypoxic respiratory failure Elevated d-dimer with negative CT angiogram of the chest on 08/25/2021 for pulmonary embolism, patient started on subcu Lovenox Underlying history of COPD, patient is a previous smoker Underlying history of hypothyroidism maintained on Synthroid At this time patient is admitted to medical floor he was started on IV dexamethasone and subcu Lovenox He is also maintained on albuterol inhaler He received monoclonal antibodies 2 weeks ago He is out of the therapeutic window for REMDESEVIR We'll add cough medicine with codeine per patient request Medication and labs were reviewed pulmonary consultation requested will follow closely
--- NOTE | 2021-09-01 15:42 | P.PN ---
Subjective Progress Note Date: 09/01/21 Principal diagnosis: COVID-19 pneumonia 61-year-old male patient of Dr. Hudson with past medical history of hypothyroidism was just recently started on levothyroxine, ex-smoker quit smoking 10 years ago, came into the emergency department on 08/28/2021 for evaluation of shortness of breath, cough. He was diagnosed with COVID-19 on 08/19 2021, and he received a monoclonal antibiotics. Patient is not vaccinated against COVID 19. He was in the emergency department again on 08/25/2021 with coughing, and left-sided abdominal discomfort with coughing, and burning in his chest with episodes of coughing. Patient was having fever and chills. CTA chest was completed and showed suboptimal enhancement of the pulmonary artery, but there was no CT evidence for a large central or lobar pulmonary embolism. Assessment of the segmental and subsegmental vessels was limited. There was diffuse peripheral groundglass opacities related to COVID-19 pneumonia, and there was 1.1 cm extraluminal gas in the right peritracheal region likely related to pneumomediastinum. Patient was released home then. Chest x-ray from this admission on 08/28/2021 showing moderate peripheral patchy airspace opacities. She is currently on 3 L of oxygen his pulse ox of 90%, afebrile, hemodynamically he is stable, he was given a dose of Decadron 10 mg in the emergency department and was started on prophylactic anticoagulation in the form of Lovenox. His admission labs show CBC within normal limits, d-dimer is 1.09, sodium is 135 and Celexa lites are unremarkable, BUN is 17 creatinine 0.5, LDH is 1137, CRP is 5.4, AST was 72, ALT and alkaline phosphatase were within normal limits. On 08/30/2021 patient seen in follow-up on medical surgical floor. He is sitting up in the recliner, still coughs a lot, and short of breath with exertion, is currently on 8 L of oxygen pulse ox is 95%, afebrile. No chest pain, blood pressure stable, lung sounds reveal coarse bibasilar crackles, no wheezing. Patient remains on Decadron 6 mg daily, vitamins, and Lovenox. Tolerating oral intake, no nausea vomiting or diarrhea. The patient is seen today 08/31/2021 in follow-up on the regular medical floor. He is currently sitting up in a chair at the bedside. Awake and alert in no acute distress. He is breathing about the same today as compared to yesterday. He is still requiring 10 L high flow nasal cannula to maintain O2 saturation in the 90s. Dopplers of the lower extremity were negative for DVT. D-dimer 0.82. He is continued on Decadron, Lovenox, vitamin supplements. The patient is seen today 09/01/2021 in follow-up on the regular medical floor. He is currently sitting up in a chair at the bedside. Awake and alert in no acute distress. Feeling a little bit better today compared to yesterday. Less shortness of breath. Less cough and congestion. He is currently on 7 L high flow cannula with O2 saturation 94%. Chest x-ray continues to show bilateral airspace disease with interstitial opacities. No significant change. White count 11.6. Hemoglobin 14.6. Lymphocytes 1.29. D-dimer 0.85. Sodium 139. Potassium 4.2. He is creatinine 0.6. LDH 275. C-reactive protein 1.20. He is continued on Decadron, Lovenox, vitamin supplements. Objective - Vital Signs Vital signs: Vital Signs Temp 97.6 F 09/01/21 10:00 Pulse 97 09/01/21 10:00 Resp 22 09/01/21 10:00 BP 111/78 09/01/21 10:00 Pulse Ox 94 L 09/01/21 10:00 Intake & Output 08/31/21 09/01/21 09/01/21 18:59 06:59 18:59 Other: Voiding Method Toilet Toilet Bedside Commode Bedside Commode Urinal Urinal # Voids 3 5 # Bowel Movements 0 1 - Exam GENERAL EXAM: Alert, very pleasant 61-year-old gentleman, on 7 L high flow nasal cannula, fairly comfortable in no apparent distress. HEAD: Normocephalic. EYES: Normal reaction of pupils, equal size. NOSE: Clear with pink turbinates. THROAT: No erythema or exudates. NECK: No masses, no JVD. CHEST: No chest wall deformity. LUNGS: Equal air entry with crackles in the bilateral bases. CVS: S1 and S2 normal with no audible murmur, regular rhythm. ABDOMEN: No hepatosplenomegaly, normal bowel sounds, no guarding or rigidity. SPINE: No scoliosis or deformity SKIN: No rashes CENTRAL NERVOUS SYSTEM: No focal deficits, tone is normal in all 4 extremities. EXTREMITIES: There is no peripheral edema. No clubbing, no cyanosis. Peripheral pulses are intact. - Labs CBC & Chem 7: 09/01/21 06:36 09/01/21 06:36 Labs: Abnormal Lab Results - Last 24 Hours (Table) 09/01/21 09/01/21 09/01/21 Range/Units 06:36 06:36 06:36 WBC 11.66 H (4.50-10.00) X 10*3/uL Plt Count 451 H (140-440) X 10*3/uL Immature Gran # 0.15 H (0.00-0.04) X 10*3/uL Neutrophils # 9.07 H (1.80-7.70) X 10*3/uL Monocytes # 1.10 H (0.20-1.00) X 10*3/uL Eosinophils # 0.03 L (0.04-0.35) X 10*3/uL D-Dimer 0.85 H (<0.60) mg/L FEU BUN/Creatinine Ratio 29.92 H (12.00-20.00) Ratio AST 47 H (14-35) U/L ALT 73 H (10-49) U/L Lactate Dehydrogenase 275 H (120-246) U/L C-Reactive Protein 1.20 H (0.00-0.80) mg/dL Albumin 3.5 L (3.8-4.9) g/dL Albumin/Globulin Ratio 1.13 L (1.60-3.17) g/dL Assessment and Plan Assessment: 1 Acute hypoxic respiratory failure related to acute COVID-19 pneumonia, and patient was diagnosed with COVID-19 on 08/20/2021, he was outside the window for Remdesivir. He is status post monoclonal antibody infusion. 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 Joseph Improved today compared to yesterday Titrate down the FiO2 as tolerated Increase his activity as tolerated Continue Lovenox, Decadron, vitamin supplements We will continue to follow I, the cosigning physician, performed a history & physical examination of the patient. Lungs sounds with crackles in posterior bases. Maintaining good O2 saturations in the 90s on 7 L high flow nasal cannula. I discussed the assessment and plan of care with my nurse practitioner, Rae Colon. I attest to the above note as dictated by her.
[2021-09-01] MEDS: ENOXAPARIN 40 MG/0.4 ML SYRINGE SQ SCH (20:25)
[2021-09-02] MEDS: LEVOTHYROXINE 75 MCG TAB PO SCH (05:52)
[2021-09-02] MEDS: CHOLECALCIFEROL 25 MCG (1000 IU) TABLET PO SCH (08:46)
[2021-09-02] MEDS: ZINC SULFATE 220 MG CAP PO SCH (08:46)
[2021-09-02] MEDS: DEXAMETHASONE SOD PHOSPHATE 10 MG/ML 1 ML VIAL IVP SCH (08:46)
[2021-09-02] MEDS: ASCORBIC ACID 500 MG TAB PO SCH ×2 (08:46→20:40)
[2021-09-02] MEDS: ALBUTEROL HFA INHALER INHALATION PRN ×4 (09:05→20:57)
--- NOTE | 2021-09-02 14:18 | P.PN ---
Subjective Progress Note Date: 09/02/21 Principal diagnosis: Dyspnea, COVID-19 61-year-old male patient of Dr. Hudson with past medical history of hypothyroidism was just recently started on levothyroxine, ex-smoker quit smoking 10 years ago, came into the emergency department on 08/28/2021 for evaluation of shortness of breath, cough. He was diagnosed with COVID-19 on 08/19 2021, and he received a monoclonal antibiotics. Patient is not vaccinated against COVID 19. He was in the emergency department again on 08/25/2021 with coughing, and left-sided abdominal discomfort with coughing, and burning in his chest with episodes of coughing. Patient was having fever and chills. CTA chest was completed and showed suboptimal enhancement of the pulmonary artery, but there was no CT evidence for a large central or lobar pulmonary embolism. Assessment of the segmental and subsegmental vessels was limited. There was diffuse peripheral groundglass opacities related to COVID-19 pneumonia, and there was 1.1 cm extraluminal gas in the right peritracheal region likely related to pneumomediastinum. Patient was released home then. Chest x-ray from this admission on 08/28/2021 showing moderate peripheral patchy airspace opacities. She is currently on 3 L of oxygen his pulse ox of 90%, afebrile, hemodynamically he is stable, he was given a dose of Decadron 10 mg in the emergency department and was started on prophylactic anticoagulation in the form of Lovenox. His admission labs show CBC within normal limits, d-dimer is 1.09, sodium is 135 and Celexa lites are unremarkable, BUN is 17 creatinine 0.5, LDH is 1137, CRP is 5.4, AST was 72, ALT and alkaline phosphatase were within normal limits. On 08/30/2021 patient seen in follow-up on medical surgical floor. He is sitting up in the recliner, still coughs a lot, and short of breath with exertion, is currently on 8 L of oxygen pulse ox is 95%, afebrile. No chest pain, blood pressure stable, lung sounds reveal coarse bibasilar crackles, no wheezing. Patient remains on Decadron 6 mg daily, vitamins, and Lovenox. Tolerating oral intake, no nausea vomiting or diarrhea. On 09/02/2021 patient name follow-up on medical surgical floor. He is currently on 6 L of oxygen, he is breathing comfortably, she does have exertional dyspnea but she does tolerate ambulate into the bathroom, he is currently on 6 L of oxygen his pulse ox is 95%, FiO2 has been cut back to 5 L, occasional cough, no phlegm production, no chest discomfort. He's had no acute events overnight, he remains on a combination of Decadron 6 mg daily, prophylactic Lovenox, and vit cannon C, vitamin D and zinc. Today's labs have been reviewed, his d-dimer is fairly stable at 0.85, his white count is 11.6, hemoglobin is 14.6, electrolytes and renal profile are unremarkable, his inflammatory markers are improving and his LDH is down to 275 and CRP is down to 1.2. Objective - Vital Signs Vital signs: Vital Signs Temp 98.1 F 09/02/21 10:00 Pulse 94 09/02/21 10:00 Resp 20 09/02/21 10:00 BP 123/80 09/02/21 10:00 Pulse Ox 95 09/02/21 10:00 Intake & Output 09/01/21 09/02/21 09/02/21 18:59 06:59 18:59 Intake Total 1080 Balance 1080 Intake: Oral 1080 Other: Voiding Method Toilet Bedside Commode Urinal # Voids 3 2 3 # Bowel Movements 1 - Exam GENERAL EXAM: Alert, very pleasant, 61-year-old white male, on 6 L, with a pulse ox of 95%% comfortable in no apparent distress. HEAD: Normocephalic/atraumatic. EYES: Normal reaction of pupils, equal size. Conjunctiva pink, sclera white. NOSE: Clear with pink turbinates. THROAT: No erythema or exudates. NECK: No masses, no JVD, no thyroid enlargement, no adenopathy. CHEST: No chest wall deformity. Symmetrical expansion. LUNGS: Equal air entry with diffuse bibasilar crackles CVS: Regular rate and rhythm, normal S1 and S2, no gallops, no murmurs, no rubs ABDOMEN: Soft, nontender. No hepatosplenomegaly, normal bowel sounds, no guarding or rigidity. EXTREMITIES: No clubbing, no edema, no cyanosis, 2+ pulses and upper and lower extremities. MUSCULOSKELETAL: Muscle strength and tone normal. SPINE: No scoliosis or deformity SKIN: No rashes CENTRAL NERVOUS SYSTEM: Alert and oriented -3. No focal deficits, tone is normal in all 4 extremities. PSYCHIATRIC: Alert and oriented -3. Appropriate affect. Intact judgment and insight. - Labs CBC & Chem 7: 09/01/21 06:36 09/01/21 06:36 Assessment and Plan Plan: Assessment: #1. Acute hypoxic respiratory failure related to acute COVID-19 pneumonia, and patient was diagnosed with COVID-19 on 2020, he was outside the window for Remdesivir. He is status post monoclonal antibody infusion. Non-vaccinated against COVID-19 #2. Elevated d-dimer at 1.09 CTA chest on 08/25/2021 showed NO evidence of a large central pulmonary embolism, however this was a suboptimal enhancement of the pulmonary artery and its branches #3. Increased inflammatory markers related to acute COVID-19 pneumonia #4. 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 Hypothyroidism Plan: Patient is improving FiO2 is currently down to 6 L Continue weaning FiO2 Inflammatory markers are improving Vital signs have been stable He is tolerating ambulation in the room From pulmonary perspective if he continues to improve and his FiO2 requirement is less than 5 L he may be considered for discharge home tomorrow on suppleme ntal oxygen I performed a history & physical examination of the patient and discussed their management with my nurse practitioner, Valentina Eaton. I reviewed the nurse practitioner's note and agree with the documented findings and plan of care. Lung sounds are positive for diffuse bibasilar crackles throughout the lung amato. The findings and the impression was discussed with the patient. I attest to the documentation by the nurse practitioner. Time with Patient: Less than 30
--- NOTE | 2021-09-02 18:14 | P.PN ---
Subjective Progress Note Date: 09/02/21 Bert Guerrier, is a 61-year-old male who presented to [facility] emergency room with a chief complaint of worsening shortness of breath and cough, patient states that he tested positive for COVID-19 2 weeks ago, at that time he received monoclonal antibody infusion, he is not vaccinated for COVID- 19. Patient was doing well until 3 days prior to this admission when he started having low-grade fever, chills, worsening cough and worsening shortness of breath, his symptoms continued to escalate and he decided to come to emergency room he was evaluated in the emergency room, vital examination on presentation revealed a temperature of 98.5 pulse 102 respiration 22 blood pressure 119/84 pulse ox 89% on room air laboratory data revealed a white blood count of 8.6 hemoglobin 15.4 platelet count 277 BUN 17 creatinine 0.5 to d-dimer was elevated at 1.09 chest x-ray revealed moderate peripheral patchy airspace opacities compatible was atypical pneumonia. patient was started on IV dexamethasone, subcu Lovenox, and inhaled bronchodilators and was admitted to medical floor for further evaluation and treatment On 08/30/2021 patient was seen and examined on the medical floor, he is alert and oriented 3 in no apparent distress he is still maintained on oxygen 8 L/m via high flow cannula, he is complaining of shortness of breath and cough and generalized weakness otherwise he denies any complaints there is no fever or chills no headache or dizziness no chest pain no nausea or vomiting no abdominal pain no diarrhea no blood in the stools no burning with urination no frequency or urgency and no hematuria On 08/31/2021 patient was seen and examined on the medical floor he is alert and oriented 3 in no apparent distress he is still complaining of cough and shortness of breath otherwise he denies any complaints there is no fever or chills no headache or dizziness no chest pain no nausea or vomiting no abdominal pain no diarrhea no blood in the stools no burning with urination no frequency or urgency no hematuria vital examination reveals a temperature of 97.7 pulse 102 respiration 22 blood pressure 122/79 pulse ox 93% on 10 L high flow cannula white blood count is 11.7 hemoglobin 14.4 platelet count 392 d-dimer 0.94 sodium 140 potassium 4.6 chloride 104 CO2 22 BUN 19 creatinine 0.6 bilateral lower extremity Doppler were negative for DVT On 09/01/2021 patient was seen and examined on the medical floor he is alert and oriented 3 in no apparent distress he is still complaining of cough and shortness of breath otherwise he denies any complaints there is no fever or chills no headache or dizziness no chest pain no nausea or vomiting no abdominal pain no diarrhea no blood in the stools no burning with urination no frequency or urgency no hematuria vital examination reveals a temperature of 98.2 pulse 76 respiration 20 blood pressure 115/77 pulse ox 94% on 7 L high flow cannula white blood count is 11.66 hemoglobin 14.6 platelet count 451 d-dimer 0.85 sodium 139 potassium 4.2 chloride 104 CO2 22 BUN 18.1 creatinine 0.6 bilateral lower extremity Doppler were negative for DVT On 09/02/2021 patient was seen and examined on the medical floor he is alert and oriented 3 in no apparent distress he is still complaining of cough and shortness of breath but feels that he is gradually improving, otherwise he denies any complaints there is no fever or chills no headache or dizziness no chest pain no nausea or vomiting no abdominal pain no diarrhea no blood in the stools no burning with urination no frequency or urgency no hematuria . Patient is maintained on Oxygen at 6 liters Objective - Vital Signs Vital signs: Vital Signs Temp 98.1 F 09/02/21 10:00 Pulse 94 09/02/21 10:00 Resp 20 09/02/21 10:00 BP 123/80 09/02/21 10:00 Pulse Ox 95 09/02/21 10:00 Intake & Output 09/01/21 09/02/21 09/02/21 18:59 06:59 18:59 Intake Total 1080 Balance 1080 Intake: Oral 1080 Other: Voiding Method Toilet Bedside Commode Urinal # Voids 3 2 # Bowel Movements 1 - Exam In general patient is alert and oriented x 3 in no distress HEENT head normocephalic and atraumatic Neck is supple no JVD no goiter no lymphadenopathy no carotid bruit Chest examination reveals a crackles in both lung amato with wheezing Cardiac exam reveals regular heart sounds S1 and S2 no gallops no murmurs Abdomen is soft nontender no organomegaly with normal bowel sounds Extremity exam reveals no edema no cyanosis or clubbing Neurological examination reveals no gross focal deficits - Labs CBC & Chem 7: 09/01/21 06:36 09/01/21 06:36 Assessment and Plan Plan: Acute COVID-19 pneumonia Acute hypoxic respiratory failure Elevated d-dimer with negative CT angiogram of the chest on 08/25/2021 for pulmonary embolism, patient started on subcu Lovenox Underlying history of COPD, patient is a previous smoker Underlying history of hypothyroidism maintained on Synthroid At this time patient is admitted to medical floor he was started on IV dexamethasone and subcu Lovenox He is also maintained on albuterol inhaler He received monoclonal antibodies 2 weeks ago He is out of the therapeutic window for REMDESEVIR We'll add cough medicine with codeine per patient request Medication and labs were reviewed pulmonary consultation requested will follow closely
[2021-09-02] MEDS: ENOXAPARIN 40 MG/0.4 ML SYRINGE SQ SCH (20:40)
[2021-09-03] MEDS: LEVOTHYROXINE 75 MCG TAB PO SCH (05:43)
[2021-09-03] MEDS: CHOLECALCIFEROL 25 MCG (1000 IU) TABLET PO SCH (08:31)
[2021-09-03] MEDS: ZINC SULFATE 220 MG CAP PO SCH (08:31)
[2021-09-03] MEDS: DEXAMETHASONE SOD PHOSPHATE 10 MG/ML 1 ML VIAL IVP SCH (08:31)
[2021-09-03] MEDS: ASCORBIC ACID 500 MG TAB PO SCH ×2 (08:31→21:09)
--- NOTE | 2021-09-03 15:19 | P.PN ---
Subjective Progress Note Date: 09/03/21 Principal diagnosis: Dyspnea, COVID-19 61-year-old male patient of Dr. Hudson with past medical history of hypothyroidism was just recently started on levothyroxine, ex-smoker quit smoking 10 years ago, came into the emergency department on 08/28/2021 for evaluation of shortness of breath, cough. He was diagnosed with COVID-19 on 08/19 2021, and he received a monoclonal antibiotics. Patient is not vaccinated against COVID 19. He was in the emergency department again on 08/25/2021 with coughing, and left-sided abdominal discomfort with coughing, and burning in his chest with episodes of coughing. Patient was having fever and chills. CTA chest was completed and showed suboptimal enhancement of the pulmonary artery, but there was no CT evidence for a large central or lobar pulmonary embolism. Assessment of the segmental and subsegmental vessels was limited. There was diffuse peripheral groundglass opacities related to COVID-19 pneumonia, and there was 1.1 cm extraluminal gas in the right peritracheal region likely related to pneumomediastinum. Patient was released home then. Chest x-ray from this admission on 08/28/2021 showing moderate peripheral patchy airspace opacities. She is currently on 3 L of oxygen his pulse ox of 90%, afebrile, hemodynamically he is stable, he was given a dose of Decadron 10 mg in the emergency department and was started on prophylactic anticoagulation in the form of Lovenox. His admission labs show CBC within normal limits, d-dimer is 1.09, sodium is 135 and Celexa lites are unremarkable, BUN is 17 creatinine 0.5, LDH is 1137, CRP is 5.4, AST was 72, ALT and alkaline phosphatase were within normal limits. On 08/30/2021 patient seen in follow-up on medical surgical floor. He is sitting up in the recliner, still coughs a lot, and short of breath with exertion, is currently on 8 L of oxygen pulse ox is 95%, afebrile. No chest pain, blood pressure stable, lung sounds reveal coarse bibasilar crackles, no wheezing. Patient remains on Decadron 6 mg daily, vitamins, and Lovenox. Tolerating oral intake, no nausea vomiting or diarrhea. On 09/02/2021 patient name follow-up on medical surgical floor. He is currently on 6 L of oxygen, he is breathing comfortably, she does have exertional dyspnea but she does tolerate ambulate into the bathroom, he is currently on 6 L of oxygen his pulse ox is 95%, FiO2 has been cut back to 5 L, occasional cough, no phlegm production, no chest discomfort. He's had no acute events overnight, he remains on a combination of Decadron 6 mg daily, prophylactic Lovenox, and vit cannon C, vitamin D and zinc. Today's labs have been reviewed, his d-dimer is fairly stable at 0.85, his white count is 11.6, hemoglobin is 14.6, electrolytes and renal profile are unremarkable, his inflammatory markers are improving and his LDH is down to 275 and CRP is down to 1.2. On 09/03/2021 patient seen in follow-up on medical surgical floor. He is currently down to 5 L, pulse ox is 95%, and FiO2 has been cut back to 4 L, still very short of breath with exertion, but has been able to ambulate to the bathroom, tolerates activity better. Fever or chills, no complaints of worsening dyspnea on hypoxic, no chest pain. Sounds reveal bibasilar crackles, no rhonchi or wheezing. His chest x-ray yesterday showed bilateral airspace and interstitial opacities. Labs have been reviewed, white blood cell count is 11.6, hemoglobin is 14.6, d-dimer 0.85, electrolytes and renal profile were wi thin normal limits, LDH is 275, and CRP is improving at 1.2. Patient remains on Decadron 6 blood gram daily, Lovenox 40 mg, cough syrup on as-needed basis and multivitamins Objective - Vital Signs Vital signs: Vital Signs Temp 98.1 F 09/03/21 14:00 Pulse 92 09/03/21 14:00 Resp 16 09/03/21 14:00 BP 134/84 09/03/21 14:00 Pulse Ox 94 L 09/03/21 14:00 Intake & Output 09/02/21 09/03/21 09/03/21 18:59 06:59 18:59 Intake Total 200 Balance 200 Intake: Oral 200 Other: Voiding Method Toilet Urinal # Voids 3 2 - Exam GENERAL EXAM: Alert, very pleasant, 61-year-old white male, on 4 L, with a pulse ox of 94%% comfortable in no apparent distress. HEAD: Normocephalic/atraumatic. EYES: Normal reaction of pupils, equal size. Conjunctiva pink, sclera white. NOSE: Clear with pink turbinates. THROAT: No erythema or exudates. NECK: No masses, no JVD, no thyroid enlargement, no adenopathy. CHEST: No chest wall deformity. Symmetrical expansion. LUNGS: Equal air entry with diffuse bibasilar crackles CVS: Regular rate and rhythm, normal S1 and S2, no gallops, no murmurs, no rubs ABDOMEN: Soft, nontender. No hepatosplenomegaly, normal bowel sounds, no guarding or rigidity. EXTREMITIES: No clubbing, no edema, no cyanosis, 2+ pulses and upper and lower extremities. MUSCULOSKELETAL: Muscle strength and tone normal. SPINE: No scoliosis or deformity SKIN: No rashes CENTRAL NERVOUS SYSTEM: Alert and oriented -3. No focal deficits, tone is normal in all 4 extremities. PSYCHIATRIC: Alert and oriented -3. Appropriate affect. Intact judgment and insight. - Labs CBC & Chem 7: 09/01/21 06:36 09/01/21 06:36 Assessment and Plan Plan: Assessment: #1. Acute hypoxic respiratory failure related to acute COVID-19 pneumonia, and patient was diagnosed with COVID-19 on 2020, he was outside the window for Remdesivir. He is status post monoclonal antibody infusion. Non-vaccinated against COVID-19 #2. Elevated d-dimer at 1.09 CTA chest on 08/25/2021 showed NO evidence of a large central pulmonary embolism, however this was a suboptimal enhancement of the pulmonary artery and its branches #3. Increased inflammatory markers related to acute COVID-19 pneumonia #4. 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 Hypothyroidism Plan: Patient is improving FiO2 is currently down to 5 L Continue weaning FiO2 Inflammatory markers are improving Vital signs have been stable Continue weaning FiO2 If remains at 5 L or less of supplemental oxygen, may consider discharge home in am on home oxygen I performed a history & physical examination of the patient and discussed their management with my nurse practitioner, Valentina Eaton. I reviewed the nurse practitioner's note and agree with the documented findings and plan of care. Lung sounds are positive for diffuse bibasilar crackles throughout the lung amato. The findings and the impression was discussed with the patient. I attest to the documentation by the nurse practitioner. Time with Patient: Less than 30
[2021-09-03 15:41] VITALS: BMI 42.8
[2021-09-03] MEDS: ALBUTEROL HFA INHALER INHALATION PRN ×2 (17:26→21:51)
--- NOTE | 2021-09-03 17:31 | P.PN ---
Subjective Progress Note Date: 09/03/21 Bert Guerrier, is a 61-year-old male who presented to [facility] emergency room with a chief complaint of worsening shortness of breath and cough, patient states that he tested positive for COVID-19 2 weeks ago, at that time he received monoclonal antibody infusion, he is not vaccinated for COVID- 19. Patient was doing well until 3 days prior to this admission when he started having low-grade fever, chills, worsening cough and worsening shortness of breath, his symptoms continued to escalate and he decided to come to emergency room he was evaluated in the emergency room, vital examination on presentation revealed a temperature of 98.5 pulse 102 respiration 22 blood pressure 119/84 pulse ox 89% on room air laboratory data revealed a white blood count of 8.6 hemoglobin 15.4 platelet count 277 BUN 17 creatinine 0.5 to d-dimer was elevated at 1.09 chest x-ray revealed moderate peripheral patchy airspace opacities compatible was atypical pneumonia. patient was started on IV dexamethasone, subcu Lovenox, and inhaled bronchodilators and was admitted to medical floor for further evaluation and treatment On 08/30/2021 patient was seen and examined on the medical floor, he is alert and oriented 3 in no apparent distress he is still maintained on oxygen 8 L/m via high flow cannula, he is complaining of shortness of breath and cough and generalized weakness otherwise he denies any complaints there is no fever or chills no headache or dizziness no chest pain no nausea or vomiting no abdominal pain no diarrhea no blood in the stools no burning with urination no frequency or urgency and no hematuria On 08/31/2021 patient was seen and examined on the medical floor he is alert and oriented 3 in no apparent distress he is still complaining of cough and shortness of breath otherwise he denies any complaints there is no fever or chills no headache or dizziness no chest pain no nausea or vomiting no abdominal pain no diarrhea no blood in the stools no burning with urination no frequency or urgency no hematuria vital examination reveals a temperature of 97.7 pulse 102 respiration 22 blood pressure 122/79 pulse ox 93% on 10 L high flow cannula white blood count is 11.7 hemoglobin 14.4 platelet count 392 d-dimer 0.94 sodium 140 potassium 4.6 chloride 104 CO2 22 BUN 19 creatinine 0.6 bilateral lower extremity Doppler were negative for DVT On 09/01/2021 patient was seen and examined on the medical floor he is alert and oriented 3 in no apparent distress he is still complaining of cough and shortness of breath otherwise he denies any complaints there is no fever or chills no headache or dizziness no chest pain no nausea or vomiting no abdominal pain no diarrhea no blood in the stools no burning with urination no frequency or urgency no hematuria vital examination reveals a temperature of 98.2 pulse 76 respiration 20 blood pressure 115/77 pulse ox 94% on 7 L high flow cannula white blood count is 11.66 hemoglobin 14.6 platelet count 451 d-dimer 0.85 sodium 139 potassium 4.2 chloride 104 CO2 22 BUN 18.1 creatinine 0.6 bilateral lower extremity Doppler were negative for DVT On 09/02/2021 patient was seen and examined on the medical floor he is alert and oriented 3 in no apparent distress he is still complaining of cough and shortness of breath but feels that he is gradually improving, otherwise he denies any complaints there is no fever or chills no headache or dizziness no chest pain no nausea or vomiting no abdominal pain no diarrhea no blood in the stools no burning with urination no frequency or urgency no hematuria . Patient is maintained on Oxygen at 6 liters On 09/03/2021 patient was seen and examined on the medical floor he is alert and oriented 3 in no apparent distress he is still complaining of cough and shortness of breath but feels that he is gradually improving, otherwise he denies any complaints there is no fever or chills no headache or dizziness no chest pain no nausea or vomiting no abdominal pain no diarrhea no blood in the stools no burning with urination no frequency or urgency no hematuria . Patient is maintained on Oxygen at 5 liters his pulse Ox is 94 % temp 98.1 pulse 92 BP 134/84 Objective - Vital Signs Vital signs: Vital Signs Temp 96.6 F L 09/03/21 06:00 Pulse 62 09/03/21 06:00 Resp 19 09/02/21 23:20 BP 125/84 09/03/21 06:00 Pulse Ox 99 09/03/21 06:00 Intake & Output 09/02/21 09/03/21 09/03/21 18:59 06:59 18:59 Intake Total 200 Balance 200 Intake: Oral 200 Other: Voiding Method Toilet Urinal # Voids 3 - Exam In general patient is alert and oriented x 3 in no distress HEENT head normocephalic and atraumatic Neck is supple no JVD no goiter no lymphadenopathy no carotid bruit Chest examination reveals a crackles in both lung amato with wheezing Cardiac exam reveals regular heart sounds S1 and S2 no gallops no murmurs Abdomen is soft nontender no organomegaly with normal bowel sounds Extremity exam reveals no edema no cyanosis or clubbing Neurological examination reveals no gross focal deficits - Labs CBC & Chem 7: 09/01/21 06:36 09/01/21 06:36 Assessment and Plan Plan: Acute COVID-19 pneumonia Acute hypoxic respiratory failure Elevated d-dimer with negative CT angiogram of the chest on 08/25/2021 for pulmonary embolism, patient started on subcu Lovenox Underlying history of COPD, patient is a previous smoker Underlying history of hypothyroidism maintained on Synthroid At this time patient is admitted to medical floor he was started on IV dexamethasone and subcu Lovenox He is also maintained on albuterol inhaler He received monoclonal antibodies 2 weeks ago He is out of the therapeutic window for REMDESEVIR We'll add cough medicine with codeine per patient request Medication and labs were reviewed pulmonary consultation requested will follow closely
[2021-09-03] MEDS: ENOXAPARIN 40 MG/0.4 ML SYRINGE SQ SCH (21:09)
[2021-09-04] MEDS: LEVOTHYROXINE 75 MCG TAB PO SCH (06:01)
[2021-09-04] MEDS: DEXAMETHASONE SOD PHOSPHATE 10 MG/ML 1 ML VIAL IVP SCH (07:27)
[2021-09-04] MEDS: ASCORBIC ACID 500 MG TAB PO SCH (07:27)
[2021-09-04] MEDS: CHOLECALCIFEROL 25 MCG (1000 IU) TABLET PO SCH (07:27)
[2021-09-04] MEDS: ZINC SULFATE 220 MG CAP PO SCH (07:27)
[2021-09-04] MEDS: ALBUTEROL HFA INHALER INHALATION PRN ×3 (07:29→16:01)
--- NOTE | 2021-09-04 16:34 | P.PN ---
Subjective Progress Note Date: 09/04/21 Principal diagnosis: COVID-19 pneumonia 61-year-old male patient of Dr. Hudson with past medical history of hypothyroidism was just recently started on levothyroxine, ex-smoker quit smoking 10 years ago, came into the emergency department on 08/28/2021 for evaluation of shortness of breath, cough. He was diagnosed with COVID-19 on 08/19 2021, and he received a monoclonal antibiotics. Patient is not vaccinated against COVID 19. He was in the emergency department again on 08/25/2021 with coughing, and left-sided abdominal discomfort with coughing, and burning in his chest with episodes of coughing. Patient was having fever and chills. CTA chest was completed and showed suboptimal enhancement of the pulmonary artery, but there was no CT evidence for a large central or lobar pulmonary embolism. Assessment of the segmental and subsegmental vessels was limited. There was diffuse peripheral groundglass opacities related to COVID-19 pneumonia, and there was 1.1 cm extraluminal gas in the right peritracheal region likely related to pneumomediastinum. Patient was released home then. Chest x-ray from this admission on 08/28/2021 showing moderate peripheral patchy airspace opacities. She is currently on 3 L of oxygen his pulse ox of 90%, afebrile, hemodynamically he is stable, he was given a dose of Decadron 10 mg in the emergency department and was started on prophylactic anticoagulation in the form of Lovenox. His admission labs show CBC within normal limits, d-dimer is 1.09, sodium is 135 and Celexa lites are unremarkable, BUN is 17 creatinine 0.5, LDH is 1137, CRP is 5.4, AST was 72, ALT and alkaline phosphatase were within normal limits. On 08/30/2021 patient seen in follow-up on medical surgical floor. He is sitting up in the recliner, still coughs a lot, and short of breath with exertion, is currently on 8 L of oxygen pulse ox is 95%, afebrile. No chest pain, blood pressure stable, lung sounds reveal coarse bibasilar crackles, no wheezing. Patient remains on Decadron 6 mg daily, vitamins, and Lovenox. Tolerating oral intake, no nausea vomiting or diarrhea. The patient is seen today 08/31/2021 in follow-up on the regular medical floor. He is currently sitting up in a chair at the bedside. Awake and alert in no acute distress. He is breathing about the same today as compared to yesterday. He is still requiring 10 L high flow nasal cannula to maintain O2 saturation in the 90s. Dopplers of the lower extremity were negative for DVT. D-dimer 0.82. He is continued on Decadron, Lovenox, vitamin supplements. The patient is seen today 09/01/2021 in follow-up on the regular medical floor. He is currently sitting up in a chair at the bedside. Awake and alert in no acute distress. Feeling a little bit better today compared to yesterday. Less shortness of breath. Less cough and congestion. He is currently on 7 L high flow cannula with O2 saturation 94%. Chest x-ray continues to show bilateral airspace disease with interstitial opacities. No significant change. White count 11.6. Hemoglobin 14.6. Lymphocytes 1.29. D-dimer 0.85. Sodium 139. Potassium 4.2. He is creatinine 0.6. LDH 275. C-reactive protein 1.20. He is continued on Decadron, Lovenox, vitamin supplements. She is seen today 09/04/2021 in follow-up on the regular medical floor. He is currently sitting up in a chair at the bedside. Awake and alert in no acute distress. He is continued on oxygen at 2 L/m per nasal cannula to maintain O2 saturations in the 90s. He does desaturate into the low 80s on room air. No IV fluids. His appetite is good. He remains on Decadron, Lovenox, vitamin supplements. He is anxious to go home. Objective - Vital Signs Vital signs: Vital Signs Temp 98.2 F 09/04/21 14:50 Pulse 88 09/04/21 14:50 Resp 22 09/04/21 14:50 BP 117/75 09/04/21 14:50 Pulse Ox 94 L 09/04/21 14:50 Intake & Output 09/03/21 09/04/21 09/04/21 18:59 06:59 18:59 Intake Total 100 Balance 100 Weight 131.542 kg Intake: Oral 100 Other: Voiding Method Toilet Toilet Urinal Urinal # Voids 2 2 2 - Exam GENERAL EXAM: Alert, very pleasant 61-year-old gentleman, on 2 L/m per nasal cannula, comfortable in no apparent distress. HEAD: Normocephalic. EYES: Normal reaction of pupils, equal size. NOSE: Clear with pink turbinates. THROAT: No erythema or exudates. NECK: No masses, no JVD. CHEST: No chest wall deformity. LUNGS: Equal air entry with crackles in the bilateral bases. CVS: S1 and S2 normal with no audible murmur, regular rhythm. ABDOMEN: No hepatosplenomegaly, normal bowel sounds, no guarding or rigidity. SPINE: No scoliosis or deformity SKIN: No rashes CENTRAL NERVOUS SYSTEM: No focal deficits, tone is normal in all 4 extremities. EXTREMITIES: There is no peripheral edema. No clubbing, no cyanosis. Peripheral pulses are intact. - Labs CBC & Chem 7: 09/01/21 06:36 09/01/21 06:36 Assessment and Plan Assessment: 1 Acute hypoxic respiratory failure related to acute COVID-19 pneumonia, and patient was diagnosed with COVID-19 on 08/20/2021, he was outside the window for Remdesivir. He is status post monoclonal antibody infusion. 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 Landeros For discharge from the pulmonary standpoint Did qualify for home oxygen Follow up in the office in 3-4 weeks I, the cosigning physician, performed a history & physical examination of the patient. Lungs sounds with crackles in posterior bases. Maintaining good O2 saturations in the 90s on 2 L nasal cannula. I discussed the assessment and plan of care with my nurse practitioner, Rae Colon. I attest to the above note as dictated by her.
[2021-09-04 18:55] VITALS: BP 121/81; PULSE 98; RESP 20; TEMP 97.7
== END 2021-09-04 18:11 | disposition home or self-care (01) | DRG 177 ==
LOC: EC 17:44 → 4SSUR 19:22
PROVIDERS: ADMIT Internal Medicine; ATTEND Internal Medicine
PROC: 5A0955A Assistance with Respiratory Ventilation, Greater than 96 Consecutive Hours, High Flow/Velocity Cannula (ICD-10-PCS; principal; 2021-08-29)
DX: U07.1 COVID-19 (principal); J12.82 Pneumonia due to coronavirus disease 2019; J96.01 Acute respiratory failure with hypoxia; I26.99 Other pulmonary embolism without acute cor pulmonale; J44.9 Chronic obstructive pulmonary disease, unspecified; E03.9 Hypothyroidism, unspecified; F17.201 Nicotine dependence, unspecified, in remission; Z79.890 Hormone replacement therapy
CPT/HCPCS: 36415; 71045; 80053; 83615; 84443; 85025; 85379; 86140; 87635; 93005; 93970; 94640; 96374; 99285

== ENCOUNTER → 2021-09-20 | Outpatient (CLI) | payer BC ==
--- NOTE | 2021-09-21 09:37 | CT ---
EXAMINATION TYPE: CT angio chest DATE OF EXAM: 09/20/2021 COMPARISON: Chest x-ray 09/01/2021, CT chest 08/25/2021 HISTORY: SOB post covid pneumonia CT DLP: 500.1 mGycm Automated exposure control for dose reduction was used. CONTRAST: CTA scan of the thorax is performed with IV Contrast, patient injected with 63cc mL of Isovue 370, pu lmonary embolism protocol. MIP images are created and reviewed. 3D reconstructed images are created on an independent workstation and reviewed. FINDINGS: LUNGS: The lungs are remarkable for some groundglass opacity, peripheral interstitial changes somewha t similar to prior exam, airspace disease appears to have improved somewhat in the interval. There is no pleural effusion or pneumothorax seen. The tracheobronchial tree is patent. AORTA: No additional significant abnormality is seen. MEDIASTINUM: There is satisfactory enhancement of the pulmonary artery and its branches, there is no CT evidence for pulmonary embolism. There are no greater than 1 cm hilar or mediastinal lymph nodes. The previous identified possible diverticulum within the right paratracheal location is again seen No pericardial effusion is seen. OTHER: No additional significant abnormality is seen. IMPRESSION: FINDINGS SIMILAR TO PRIOR EXAM. THERE IS SOME IMPROVEMENT IN AIRSPACE DISEASE.
== END | disposition home or self-care (01) ==
LOC: RADCTMAIN 16:27
PROVIDERS: ATTEND Internal Medicine
DX: U07.1 COVID-19 (principal); J12.82 Pneumonia due to coronavirus disease 2019
CPT/HCPCS: 71275; Q9967

== ENCOUNTER 2022-04-10 08:38 | Day surgery (SDC) | payer BC ==
[2022-04-09 09:11] VITALS: BMI 40.8
[~2022-04-10 08:38] MED LIST: LACTATED RINGERS 1,000 ML IV SCH; LIDOCAINE 1% (10MG/ML) FOR IV START INTRADERMA PRN
[2022-04-10 09:36] VITALS: TEMP 96.9
[2022-04-10] MEDS ORDERED: PROPOFOL 10 MG/ML 20 ML VIAL IV ONE (10:06)
--- NOTE | 2022-04-10 10:13 | P.GSHP ---
History of Present Illness H&P Date: 04/10/22 Chief Complaint: Screening colonoscopy This 61-year-old male who presents today for screening colonoscopy. Patient denies a significant GI complaints. Past Medical History Past Medical History: Thyroid Disorder History of Any Multi-Drug Resistant Organisms: None Reported Past Surgical History: No Surgical Hx Reported Additional Past Surgical History / Comment(s): REPAIRED FRACTURE OF NOSE, Past Anesthesia/Blood Transfusion Reactions: No Reported Reaction Smoking Status: Former smoker - Past Family History Mother Family Medical History: No Reported History Sister(s) Family Medical History: Cancer Additional Family Medical History / Comment(s): BREAST Medications and Allergies Home Medications Medication Instructions Recorded Confirmed Type Levothyroxine Sodium [Synthroid] 88 mcg PO DAILY 08/28/21 04/10/22 History rOPINIRole HCL [Requip] 0.5 mg PO HS PRN 04/09/22 04/10/22 History Allergies Allergy/AdvReac Type Severity Reaction Status Date / Time No Known Allergies Allergy Verified 04/09/22 08:39 Surgical - Exam Vital Signs Temp Pulse Resp BP Pulse Ox 96.9 F L 88 18 117/66 97 04/10/22 09:28 04/10/22 09:28 04/10/22 09:28 04/10/22 09:28 04/10/22 09:28 - General well developed, well nourished, no distress - Eyes PERRL - ENT normal pinna - Neck no masses - Respiratory normal expansion - Cardiovascular Rhythm: regular - Abdomen Abdomen: soft, non tender Assessment and Plan Assessment: We'll perform screening colonoscopy
--- NOTE | 2022-04-10 10:21 | P.OP ---
Date of Procedure: 04/10/22 Preoperative Diagnosis: Screening colonoscopy Postoperative Diagnosis: Mild diverticulosis Procedure(s) Performed: Colonoscopy Anesthesia: MAC Surgeon: Jayden Garzon Pathology: none sent Condition: stable Disposition: PACU Description of Procedure: Patient's placed on the endoscopy table in the lateral position. He received IV sedation. Digital rectal exam performed. This revealed no no abnormalities.. Flexible colonoscope was placed patient anus passed throughout the entire colon. Ileocecal valve was visualized. The cecum, ascending and transverse colon appeared normal. In the descending and sigmoid was mild diverticular changes. Scope was then brought back into the rectum and this appeared normal. Scope was withdrawn on the patient.
[2022-04-10 10:47] VITALS: BP 133/68; PULSE 88; RESP 16
== END 2022-04-10 11:31 | disposition home or self-care (01) ==
LOC: ORWHC2ENDO 08:38
PROVIDERS: ATTEND Surgery
DX: Z12.11 Encounter for screening for malignant neoplasm of colon (principal); K57.30 Diverticulosis of large intestine without perforation or abscess without bleeding; K21.9 Gastro-esophageal reflux disease without esophagitis; E07.9 Disorder of thyroid, unspecified; Z87.891 Personal history of nicotine dependence; Z80.3 Family history of malignant neoplasm of breast; Z79.890 Hormone replacement therapy
CPT/HCPCS: 45378; J2704

== ENCOUNTER → 2023-12-24 | Outpatient (CLI) | payer BC ==
--- NOTE | 2023-12-25 08:46 | XR ---
EXAMINATION TYPE: XR knee complete bilateral DATE OF EXAM: 12/24/2023 2:56 PM CLINICAL INDICATION:Male, 63 years old with history of PAIN IN UNSPECIFIED KNEE; H COMPARISON: None. TECHNIQUE: XR knee complete bilateral; examined in Frontal, lateral and oblique projections. FINDINGS: No evidence of any acute osseous pathology, soft tissue swelling, or joint effusion is no steve. Tricompartmental osteophyte formation involving the femoral condyles, tibial plateau and patella . Mild joint space narrowing. IMPRESSION: 1. No acute osseous pathology. 2. Mild to moderate tricompartmental osteoarthritic changes.
== END | disposition home or self-care (01) ==
LOC: RADXRMAIN 14:29
PROVIDERS: ATTEND Internal Medicine
DX: M17.0 Bilateral primary osteoarthritis of knee (principal)

== ENCOUNTER → 2024-05-09 | Outpatient (CLI) | payer BC | END | disposition home or self-care (01) | LOC: LABPAT 13:56 | PROVIDERS: ATTEND Orthopaedic Surgery | DX: Z01.812 Encounter for preprocedural laboratory examination (principal); M17.11 Unilateral primary osteoarthritis, right knee; Z22.322 Carrier or suspected carrier of Methicillin resistant Staphylococcus aureus | CPT/HCPCS: 87070 ==

== ENCOUNTER → 2024-05-23 | Outpatient (CLI) | payer BC | END | disposition home or self-care (01) | LOC: LABWHC1 14:09 | PROVIDERS: ATTEND Orthopaedic Surgery | DX: Z01.812 Encounter for preprocedural laboratory examination (principal) | CPT/HCPCS: 36415; 80048; 85025 ==

== ENCOUNTER → 2024-06-01 | Outpatient (CLI) | payer BC | END | disposition home or self-care (01) | LOC: LABWHC1 10:47 | PROVIDERS: ATTEND Orthopaedic Surgery | DX: Z01.818 Encounter for other preprocedural examination | CPT/HCPCS: 87070 ==

== ENCOUNTER 2024-06-14 10:24 | Day surgery (SDC) | payer BC ==
[2024-06-08 16:01] VITALS: BMI 39.0
--- NOTE | 2024-06-13 09:02 | P.HPOR ---
History of Present Illness H&P Date: 06/13/24 Chief Complaint: Right knee pain The patient is a 63-year-old male who presents with progressive right knee pain for the past year. He is having diffuse pain with weightbearing activities along with buckling. He is having night symptoms. He said previous medications along with injections without much relief. He notes daily pain that limits his normal function and activities. Review of Systems Per HPI Past Medical History Past Medical History: Osteoarthritis (OA), Thyroid Disorder History of Any Multi-Drug Resistant Organisms: None Reported Past Surgical History: No Surgical Hx Reported Additional Past Surgical History / Comment(s): REPAIRED FRACTURE OF NOSE, COLONOSCOPY Past Anesthesia/Blood Transfusion Reactions: No Reported Reaction Smoking Status: Former smoker - Past Family History Mother Family Medical History: No Reported History Sister(s) Family Medical History: Cancer Additional Family Medical History / Comment(s): BREAST Medications and Allergies Home Medications Medication Instructions Recorded Confirmed Type Levothyroxine Sodium [Synthroid] 88 mcg PO DAILY 08/28/21 06/08/24 History Cyclobenzaprine [Flexeril] 5 mg PO TID PRN 06/08/24 06/08/24 History Ergocalciferol [Vitamin D2 (1250 1,250 mcg PO MO 06/08/24 06/08/24 History Mcg = 30557 Iu)] HYDROcodone/APAP 10-325MG [[place] 1 tab PO Q6HR PRN 06/08/24 06/08/24 History 10-325] Allergies Allergy/AdvReac Type Severity Reaction Status Date / Time No Known Allergies Allergy Verified 06/08/24 15:40 Physical Examination - Knee right Appearance: effusion Effusion grade: grade 1 Tenderness with palpation: anterior, medial Pain: throughout ROM Gait: limping ROM: extension: -20 degrees ROM: flexion: 100 degrees Crepitus with motion: Yes Strength: extension: 5/5 Strength: flexion: 5/5 Meniscal tests: medial meniscal tests: positive, medial joint line pain: positive Results Patient is a well-developed well-nourished male approximately 5 foot 10, 285 pounds of endomorphic habitus. HEENT exam is nonfocal, neck is supple. He has painless passive motion of his right hip. Straight leg raise is negative. He is tender about the medial joint line of the right knee. Collaterals are stable, Suresh's negative, Tamica's elicits medial pain. He has genu varum alignment. His distal neurovascular appears intact in the right lower extremity. He does have an antalgic gait pattern. - Diagnostic results Knee x-ray: image reviewed (X-rays of the right knee obtained the office show severe medial compartment osteoarthrosis with subchondral sclerosis and [id number] changes.) Assessment and Plan Assessment: Right knee severe medial and patellofemoral compartment osteoarthrosis Plan: I talked to the patient at length regarding his condition along with treatment options. At this point is quite symptomatic having pain and mechanical symptoms despite previous conservative measures. After a thorough discussion he opts to proceed with surgery. We will plan to proceed with a right total knee arthroplasty. Risks and benefits were discussed at length in layman's terms. We will institute DVT prophylaxis postoperatively.
[~2024-06-14 10:24] MED LIST changes: -LACTATED RINGERS 1,000 ML IV SCH; +TRANEXAMIC 1,000 MG/100ML-NACL 1,000 MG in SALINE 1 100ML.BAG IVPB PRN
[2024-06-14] MEDS: IV FLUID CONTINUATION 1,000 ML IV ONE ×2 (10:54→19:34)
[2024-06-14] MEDS: DEXAMETHASONE SOD PHOSPHATE 4 MG/ML 1 ML VIAL IV ONE (11:18)
[2024-06-14] MEDS: ONDANSETRON 4 MG/2 ML VIAL IVP ONE (11:18)
[2024-06-14] MEDS: LACTATED RINGERS 1,000 ML IV SCH (11:18)
[2024-06-14] MEDS: ACETAMINOPHEN TAB 500 MG TAB PO PRN (11:19)
[2024-06-14] MEDS: MELOXICAM 7.5 MG TAB PO PRN (11:19)
[2024-06-14] MEDS: fentaNYL (PF) 50 MCG/ML 2 ML AMP IVP PRN (11:28)
[2024-06-14] MEDS: MIDAZOLAM 2 MG/2 ML VIAL IV PRN (11:28)
--- NOTE | 2024-06-14 12:09 | P.ANPRN ---
Procedure Note - Anesthesia - Nerve Block Performed Right Adductor Canal Infusion Time Out Performed: Yes Date of Procedure: 06/14/24 Procedure Start Time: 11:28 Procedure Stop Time: 11:36 Location of Patient: PreOp Indication: Acute Post-Operative Pain, Requested by Surgeon Sedation Type: Sedate with meaningful contact maintained Preparation: Sterile Prep, Sterile Dressing Position: Supine Catheter: Indwelling Needle Types: Pajunk Needle Gauge: 18 Ultrasound used to visualize needle placement: Yes Ultrasound used to observe medication spread: Yes Injectate: 0.5% Ropivacaine (see comment for volume) (20 ml + 10 ml NS) Blood Aspirated: No Pain Paresthesia on Injection Noted: No Resistance on Injection: Normal Image Stored and Saved: Yes Events: Uneventful and Well Tolerated
--- NOTE | 2024-06-14 12:11 | P.ANPRN ---
Procedure Note - Anesthesia - Nerve Block Performed Right iPack Single Time Out Performed: Yes Date of Procedure: 06/14/24 Procedure Start Time: 11:37 Procedure Stop Time: 11:42 Location of Patient: PreOp Indication: Acute Post-Operative Pain, Requested by Surgeon Sedation Type: Sedate with meaningful contact maintained Preparation: Sterile Prep Position: Left Lateral Needle Types: Pajunk Needle Gauge: 21 Ultrasound used to visualize needle placement: Yes Ultrasound used to observe medication spread: Yes Injectate: 0.5% Ropivacaine (see comment for volume) (20 ml + 10 ml NS + 4 mg Dexamethasone) Blood Aspirated: No Pain Paresthesia on Injection Noted: No Resistance on Injection: Normal Image Stored and Saved: Yes Events: Uneventful and Well Tolerated
[2024-06-14] MEDS ORDERED: SODIUM CHLORIDE 0.9% (PF) 10 ML VIAL ONE (13:05)
[2024-06-14] MEDS ORDERED: ROPIVACAINE 5 MG/ML 30 ML VIAL ONE (13:05)
[2024-06-14] MEDS ORDERED: PROPOFOL 10 MG/ML 20 ML VIAL IV ONE (13:05)
[2024-06-14] MEDS ORDERED: DEXAMETHASONE SOD PHOSPHATE 4 MG/ML 1 ML VIAL ONE (13:05)
[2024-06-14] MEDS ORDERED: MIDAZOLAM 2 MG/2 ML VIAL ONE (13:05)
[2024-06-14] MEDS: ceFAZolin 3 GM in SODIUM CHLORIDE 0.9% 100 ML IVPB PRN (13:05)
[2024-06-14] MEDS ORDERED: fentaNYL (PF) 50 MCG/ML 2 ML AMP ONE (13:05)
[2024-06-14] MEDS ORDERED: TRANEXAMIC 1,000 MG/100ML-NACL PREMIX BAG ONE (13:05)
[2024-06-14] MEDS: ceFAZolin 1,000 MG in SODIUM CHLORIDE 0.9% 1,000 ML IRRIGATION ONE (13:33)
[2024-06-14] MEDS: LACTATED RINGERS 1,000 ML IV ONE (13:57)
[2024-06-14] MEDS ORDERED: MAGNESIUM HYDROXIDE 2,400 MG/30 ML CUP PO PRN (15:03)
[2024-06-14] MEDS ORDERED: HYDROmorphone 0.5 MG/0.5 ML SYRINGE IVP PRN (15:03)
[2024-06-14] MEDS ORDERED: HYDROcodone/APAP 7.5-325MG 1 EACH TAB PO PRN (15:03)
[2024-06-14] MEDS ORDERED: hydrOXYzine pamoate 25 MG CAP PO PRN (15:03)
[2024-06-14] MEDS ORDERED: HYDROmorphone 1 MG/ML 1 ML SYRINGE IVP PRN (15:03)
[2024-06-14] MEDS ORDERED: NALOXONE 0.4 MG/ML 1 ML VIAL IV PRN (15:03)
--- NOTE | 2024-06-14 15:30 | P.OP ---
Date of Procedure: 06/14/24 Preoperative Diagnosis: Right knee severe tricompartmental osteoarthrosis Postoperative Diagnosis: Same Procedure(s) Performed: Right total knee arthroplastycementedposterior stabilized Implants: DePuy attune size 8 cemented femoral component, size 8 cemented tibial component, 14 x 50 mm tibial stem extension, 9 mm articular surface, 38 mm cemented patellar component. This is a posterior stabilized implant. Anesthesia: regional, spinal Surgeon: Ney Goode Set Off Press Operator #1: Spencer Parrish Estimated Blood Loss (ml): 50 Pathology: none sent Condition: stable Disposition: PACU Indications for Procedure: The patient is a 63-year-old male who presents with progressive right knee pain secondary to osteoarthrosis despite conservative measures. A discussion of the risks and benefits of operative intervention versus continued conservative measures was made with the patient. He opted proceed with surgery. Operative risks include infection, neurovascular injury, development of blood clots, fracture, possible component loosening/failure and possible need for subsequent procedures was discussed. Informed consent was obtained. Operative Findings: As below Description of Procedure: The patient was brought to the operating room, and after induction of spinal anesthesia the right lower extremity was prepped and draped in a normal fashion. The tourniquet was inflated to 270 mm marker. A longitudinal incision extending 3 finger breaths above the superior pole of patella extending to the medial aspect the tibial tubercle was then made. The skin and subcutaneous tiss ues were divided sharply. Electrocautery was used for hemostasis. A medial parapatellar arthrotomy was performed. The medial soft tissues to include the superficial and deep portions of the medial collateral ligament were elevated subperiosteally. The patella was everted. A portion of the retropatellar fat pad was excised sharply. The anterior cruciate ligament was sacrificed. Blunt retractors were placed. A starting hole was made in the distal femur 1 cm anterior to the posterior cruciate ligament origin. An intramedullary femoral guide was then inserted planning on 5 valgus distal cut with 9 mm distal resection. The cutting block was pinned in place. The distal cut was then made. The posterior referencing sizing guide was utilized. I felt size 8 was most appropriate. 3 of external rotation was built into the system and verified off the trans-epicondylar axis and the posterior condyles. The cutting block was pinned in place. The anterior, posterior, and chamfer cuts then made. Bone fragments were removed. The intercondylar guide was placed and the notch cut was made with a sagittal saw. The bone block was removed in one fragment. The trial component was then placed. There is good anterior to posterior and medial to lateral fit. The distal peg holes were drilled. The trial component was removed. Attention was then paid towards preparing the proximal tibia. An extra medullary guide was utilized in line with the tibial shaft and second metatarsal distally. I planned on 2 mm resection from the medial compartment. The cutting block was pinned in place. The proximal tibial cut was then made. The bone was removed in one fragment. The remnants of the medial and lateral menisci were excised at the capsular junction with electrocautery. The tibia sized most appropriately at size 8. The trial femoral and tibial components were placed along with a 9 mm articular surface. I was able to obtain full flexion and extension with internal and external rotation. After several flexion and extension cycles, the tibial rotation was marked with electrocautery line with the medial one third of the tibial tubercle. Attention was then paid towards preparing the patella. A patella reamer was utilized taking stem to 14 mm of bone stock. A good flush cut was made. The patella sized most appropriately 35 mm. The peg holes were drilled. The trial components placed. I had good patellofemoral tracking with no hands technique. The trial components were then removed. The tibia was prepared in the appropriate rotation with appropriate drill and keel punch. The posterior osteophytes were removed with a curved osteotome. The flexion and extension gaps were checked and felt to be symmetric at 9 mm. A trial components were then removed. The bony surfaces were prepared with pulsatile lavage and dried. The tibial component was then cemented place was fully seated. Excess cement was removed. The femoral component cemented place and was fully seated. Excess cement was removed. The trial 9 mm articular surface was placed and the knee was put in full extension. The patella component was cemented place. After the cement had sufficiently hardened, the knee was again taken through a range of motion. Again I was able to obtain full flexion and extension with varus and valgus stress. The trial 9 mm articular surface was removed and the final one inserted. This was fully seated. Care was taken to avoid any soft tissue interposition. Pulsatile lavage was again utilized. The medial parapatellar arthrotomy was closed with #2 Ethibond suture. The tourniquet was deflated with approximately 70 minutes total tourniquet time. Final hemostasis was obtained with the cautery. There was minimal bleeding therefore a deep drain was not placed. The subcutaneous tissues were reapproximated with interrupted 2-0 Vicryl sutures. The skin was reapproximated with 3-0 subcuticular strata fix suture. Skin tape and adhesive was applied. A sterile dressing was applied. The patient was awoken from sedation and transferred to recovery room in good condition. Blood loss was estimated at 50 mL. No complications were incurred. Sponge and needle counts were correct at the end of the case. Spencer SWAIN assisted during the major components of this case to include exposure, bone resection, implantation, and closure.
[2024-06-14] MEDS: ROPIVACAINE 1,100 MG, SODIUM CHLORIDE 0.9% 500 ML 330 ML, EMPTY PAIN BALL 1 EACH MISCELLANE PRN (15:37)
--- NOTE | 2024-06-14 16:05 | XR ---
EXAMINATION TYPE: XR knee limited two-view RT DATE OF EXAM: 06/14/2024 Comparison: 12/24/2023 Clinical History: 63-year-old male Evaluation for Postop abnormality and alignment Findings: Images show placement of right total knee arthroplasty. Both distal femoral and proximal tibial compo nents of the prosthesis are well seated without periprosthetic fracture. Alignment grossly anatomic. Anterior soft tissue swelling with scattered soft tissue air as well as intra-articular air related t o recent operation. Impression: Uncomplicated postoperative appearance right total knee arthroplasty.
[2024-06-14] MEDS: HYDROmorphone 0.5 MG/0.5 ML SYRINGE IVP PRN (17:33)
[2024-06-14] MEDS: HYDROcodone/APAP 10-325MG 1 EACH TAB PO PRN (19:08)
[2024-06-14] MEDS: CYCLOBENZAPRINE 5 MG TAB PO SCH (22:59)
[2024-06-14] MEDS: SENNOSIDES-DOCUSATE SODIUM 1 EACH TAB PO SCH (22:59)
[2024-06-14] MEDS: ceFAZolin 3 GM in SODIUM CHLORIDE 0.9% 100 ML IVPB SCH (23:00)
[2024-06-15 04:27] VITALS: RESP 17
--- NOTE | 2024-06-15 06:45 | P.PN ---
Progress Note - Text Progress Note Date: 06/15/24 Postoperative day # 1 status post total knee arthroplasty, and adductor canal catheter placed for postoperative analgesia, currently at ropivacaine 0.2% 8 mL per hour and continuous infusion, visual analogue scale is 3/10, patient using oral pain medication for breakthrough pain. Assessment and plan= Acute postoperative pain, adductor canal catheter for pain control, pain is well controlled we'll continue the same management.
[2024-06-15] MEDS: RIVAROXABAN 10 MG TAB PO SCH (07:34)
[2024-06-15 08:25] VITALS: BP 102/61; PULSE 95; TEMP 98.4
[2024-06-15 08:52] LABS: Basophils # (A) 0.02 X 10*3/uL (0.00-0.10); Basophils % (A) 0.1 %; Eosinophils # (A) 0.01 X 10*3/uL (0.04-0.35); Eosinophils % (A) 0.1 %; HCT 37.1 % (39.6-50.0); HGB 12.4 g/dL (13.0-17.0); Lymphocytes # (A) 0.89 X 10*3/uL (0.90-5.00); Lymphocytes % (A) 5.8 %; MCH 32.3 pg (27.0-32.0); MCHC 33.4 g/dL (32.0-37.0); MCV 96.6 FL (80.0-97.0); Mean Platelet Volume 10.8 FL (9.5-12.2); Monocytes # (A) 1.27 X 10*3/uL (0.20-1.00); Monocytes % (A) 8.2 %; NRBC Per 100 WBC 0 X 10*3/uL (0.00-0.01); Neutrophils # (A) 13.18 X 10*3/uL (1.80-7.70); Neutrophils % (A) 85.3 %; Platelet Count 273 X 10*3/uL (140-440); RBC 3.84 X 10*6/uL (4.40-5.60); RDW 12.1 % (11.5-14.5); WBC 15.44 X 10*3/uL (4.50-10.00)
--- NOTE | 2024-06-15 08:53 | P.CONS ---
History of Present Illness - Reason for Consult Consult date: 06/15/24 Medical management Requesting physician: Ney Goode - History of Present Illness This is a 63-year-old male patient who presented for an elective right knee arthroplasty with Dr. Curiel on 06/14/2024. Patient has a history of osteoarthritis with failed conservative management. Additional medical history includes hypothyroidism and ex-smoker. At this time patient is currently postop day 1. Patient reports mild discomfort with movement. Patient reports he has been voiding independently without issue. Patient denies any chest pain or shortness of breath. Patient denies nausea vomiting or diarrhea. Patient denies any urinary burning or frequency. Current vital signs temp 98.4, heart rate 95, respiratory rate 17, blood pressure 102/61 with a pulse ox of 95% on room air. Routine lab work ordered Review of Systems Please refer to HPI otherwise unremarkable Past Medical History Past Medical History: Osteoarthritis (OA), Thyroid Disorder History of Any Multi-Drug Resistant Organisms: None Reported Past Surgical History: No Surgical Hx Reported Additional Past Surgical History / Comment(s): REPAIRED FRACTURE OF NOSE, COLONOSCOPY Past Anesthesia/Blood Transfusion Reactions: No Reported Reaction Past Psychological History: No Psychological Hx Reported Smoking Status: Former smoker Past Alcohol Use History: Occasional Additional Past Alcohol Use History / Comment(s): STARTED SMOKING AT AGE 17 QUIT AUG 2001 SMOKED 1 PACK EVERY 3 DAYS Past Drug Use History: None Reported - Past Family History Mother Family Medical History: No Reported History Sister(s) Family Medical History: Cancer Additional Family Medical History / Comment(s): BREAST Medications and Allergies Home Medications Medication Instructions Recorded Confirmed Type Levothyroxine Sodium [Synthroid] 88 mcg PO DAILY 08/28/21 06/14/24 History Cyclobenzaprine [Flexeril] 5 mg PO TID PRN 06/08/24 06/14/24 History Ergocalciferol [Vitamin D2 (1250 1,250 mcg PO MO 06/08/24 06/14/24 History Mcg = 32029 Iu)] HYDROcodone/APAP 10-325MG [[place] 1 tab PO Q6HR PRN 06/08/24 06/14/24 History 10-325] Allergies Allergy/AdvReac Type Severity Reaction Status Date / Time No Known Allergies Allergy Verified 06/08/24 15:40 Physical Exam Vitals: Vital Signs Temp Pulse Resp BP Pulse Ox 06/15/24 06:03 98.4 F 95 17 102/61 95 06/15/24 01:43 97.7 F 86 17 117/75 97 06/14/24 20:05 97.4 F L 71 16 111/74 96 06/14/24 19:30 72 18 90/66 99 06/14/24 19:00 65 18 95/62 94 L 06/14/24 18:00 60 16 105/62 97 06/14/24 17:30 66 16 97/64 96 06/14/24 17:00 73 16 103/68 98 06/14/24 16:30 63 16 104/67 98 06/14/24 16:15 72 16 97/71 96 06/14/24 16:00 61 16 109/70 98 06/14/24 15:45 64 16 102/68 96 06/14/24 15:30 67 16 106/76 100 06/14/24 15:22 84 10 L 103/74 99 06/14/24 10:54 97 F L 68 144/87 97 Intake and Output 06/14/24 06/15/24 06/15/24 22:59 06:59 14:59 Intake Total 1320 Output Total 50 Balance 1270 Intake: IV 800 Oral 520 Output: Estimated Blood Loss 50 Other: # Voids 10 Weight 120.5 kg Head normocephalic Neck supple Lungs clear to auscultation bilaterally no wheezing or crackles Heart regular rate and rhythm S1-S2, no rub or gallop Abdomen is soft nontender nondistended positive bowel sounds no hepatosplenomegaly Extremities no edema. Right knee dressing clean dry and intact Neuro alert and orientated to 3 Assessment and Plan Assessment: 1. Status post total right knee arthroplasty on 06/14/[address] Curiel 2. History of osteoarthritis with failed conservative management 3. History of hypothyroidism 4. Ex-smoker quit in 2000 Thank you for this consultation we will continue to follow patient closely [facility] Home meds resumed Routine labs ordered DVT prophylaxis Xarelto per orthopedic services Time with Patient: Greater than 30 (Greater than 60% of the total time spent in counseling and coordination of care)
[2024-06-15] MEDS: LEVOTHYROXINE 88 MCG TAB PO SCH (09:34)
--- NOTE | 2024-06-15 12:47 | P.DS ---
Providers Date of admission: 06/14/2024 Expected date of discharge: 06/15/24 Attending physician: Ney Goode Consults: 06/14/24 15:03 Consult Physician Routine Consulting Provider: Cari Hudson Consult Reason/Comments: medical management s/p right total knee arthroplasty Do you want consulting provider notified?: Yes Primary care physician: Cari Hudson Hospital Course: Date of admission: 06/14/2024 Date of discharge: 06/15/2024 Admission diagnosis: Right knee osteoarthritis Discharge diagnosis: Same Attending physician: Dr. Goode Surgical procedures: Right total knee arthroplasty Brief history: Patient is a 63-year-old male with a history of progressive primary right knee osteoarthritis. At this point patient has failed conservative treatment measures and has opted to proceed with a elective right total knee arthroplasty. Hospital course: Details of patient's surgery can be found in operative report. Patient tolerated the procedure well and was subsequently transported to orthopedic floor. Patient's orthopeidc and medical care was provided daily. Patient had daily laboratory tests performed for evaluation of overall blood counts. Patient had daily physical therapy to include strengthening range of motion as well as education with walker ambulation. Patient was treated with Xarelto for their postoperative DVT prophylaxis during their inpatient stay. Patient was noted to have a relatively uneventful postoperative course. Patient reported satisfactory pain control with oral pain medications by postoperative day 1. Patient showed satisfactory progress with physical therapy. Patient moved steadily through the program and had no difficulty meeting the goals by postoperative day 1. Given patient's otherwise satisfactory course and having met physical therapy goals, plan is to discharge patient home with health services on postoperative day 1. Discharge condition/disposition: Patient will be discharged home with health services in stable condition. Discharge medications: Instructions are given on resumption of patient's normal daily medications per primary care recommendation, in addition patient will be prescribed [place]; senna; Eliquis 2.5 mg twice a day 2 weeks.. Discharge instructions: 1. Wound care and infection precautions, keep incision dry and covered while showering, no lotions, creams, moisturizers. No soaking, tubs, pools, hottubs. Do not scrub over the incision. 2. Weight-bear as tolerated with walker / cane until follow-up. 3. Ice and elevate when necessary. Do not exceed 20 minutes per hour with ice pack. 4. Utilize compression sleeve until seen at first follow up appointment. 5. Visiting nursing care. 6. Home physical therapy including home CPM. 7. Pain meds and anticoagulants per prescription. 8. Pain medication has potential to cause constipation. Increase oral fluid and fiber intake. Contact primary care provider if you have not had a bowel movement within 48 hours after discharge 9. No anti-inflammatory medication until discussed at first post operative visit, this including Motrin, Aleve, Mobic, Diclofenac. 10. Follow up in office at 2 weeks postop with Luis Whitmore PA-C / Spencer Parrish PA-C 11. Follow up with your primary care doctor 7-10 days after discharge. 12. Contact [facility] with any questions, . Assessment: Right knee osteoarthritis Procedures: Right total knee arthroplasty Patient Condition at Discharge: Good Plan - Discharge Summary Discharge Rx Participant: Yes New Discharge Prescriptions: New HYDROcodone/APAP 10-325MG [[place] 10-325] 1 tab PO Q6HR PRN #28 tab PRN Reason: Pain Apixaban [Eliquis] 2.5 mg PO BID #60 tab Sennosides/Docusate Sodium [Senna Plus 8.6-50 mg Softgel] 1 each PO DAILY #20 capsule Continue Ergocalciferol [Vitamin D2 (1250 Mcg = 51082 Iu)] 1,250 mcg PO MO Levothyroxine Sodium [Synthroid] 88 mcg PO DAILY No Action Cyclobenzaprine [Flexeril] 5 mg PO TID PRN PRN Reason: Pain HYDROcodone/APAP 10-325MG [[place] 10-325] 1 tab PO Q6HR PRN PRN Reason: Pain Discharge Medication List Levothyroxine Sodium [Synthroid] 88 mcg PO DAILY 08/28/21 [History] Cyclobenzaprine [Flexeril] 5 mg PO TID PRN 06/08/24 [History] Ergocalciferol [Vitamin D2 (1250 Mcg = 99870 Iu)] 1,250 mcg PO MO 06/08/24 [History] HYDROcodone/APAP 10-325MG [[place] 10-325] 1 tab PO Q6HR PRN 06/08/24 [History] Apixaban [Eliquis] 2.5 mg PO BID #60 tab 06/15/24 [Rx] HYDROcodone/APAP 10-325MG [[place] 10-325] 1 tab PO Q6HR PRN #28 tab 06/15/24 [Rx] Sennosides/Docusate Sodium [Senna Plus 8.6-50 mg Softgel] 1 each PO DAILY #20 capsule 06/15/24 [Rx] Follow up Appointment(s)/Referral(s): [facility], [NON-STAFF] - As Needed [facility] [NON-STAFF] - As Needed (Continuous Passive Motion knee machine) Spencer Parrish, JOSE [PHYSICIAN ADMIN PROG COORD] - 2 Weeks Activity/Diet/Wound Care/Special Instructions: Orthopedic Discharge Instructions: 1. Wound care and infection precautions, keep incision dry and covered while showering, no lotions, creams, moisturizers. No soaking, pools, hot tubs. Do not scrub over incision. 2. Weight-bear as tolerated with walker / cane until follow-up. 3. Ice and elevate when necessary. Do not exceed 20 minutes per hour with ice pack. 4. Utilize compression sleeve until seen at first follow up appointment. 5. Pain meds and anticoagulants per prescription. 6. Pain medication has potential to cause constipation. Increase oral fluid and fiber intake. Contact primary care provider if you have not had a bowel movement within 48 hours after discharge. 7. No anti-inflammatory medication until discussed at first post operative visit, this including Motrin, Aleve, Mobic, Diclofenac. 8. Follow up in office at 2 weeks postop with Luis Whitmore PA-C / Spencer Parrish PA-C 9. Follow up with your primary care doctor 7-10 days after discharge. 10. Contact [facility] with any questions, . Keep incision clean, dry, intact. While showering, cover fusion tape was prior. Keep fusion tape on until follow-up appointment in office in 2 weeks Discharge Disposition: HOME WITH HOME HEALTH SERVICES
--- NOTE | 2024-06-15 13:26 | P.PN ---
Subjective Progress Note Date: 06/15/24 Principal diagnosis: Right knee osteoarthritis Patient was seen at bedside this morning sitting up in chair with legs elevated placing the right knee. Patient says he does have a walker home. Patient says he worked with therapy this morning and walked up-and-down steps in the hallway without issue. Patient says pain is control with oral medication. Patient says he has urinated since surgery without issue. Patient denies any other issues at this time. Objective - Vital Signs Vital signs: Vital Signs Temp 98.4 F 06/15/24 06:03 Pulse 95 06/15/24 06:03 Resp 17 06/15/24 06:03 BP 102/61 06/15/24 06:03 Pulse Ox 95 06/15/24 06:03 FiO2 Intake & Output 06/14/24 06/15/24 06/15/24 18:59 06:59 18:59 Intake Total 1901 620 Output Total 50 Balance 1851 620 Weight 126.8 kg 120.5 kg Intake: IV 1901 100 Oral 520 Output: Estimated Blood Loss 50 Other: # Voids 10 - Exam Right knee: Incision is clean, dry, and intact. The exofin fusion tape is in good condition. There is minimal soft tissue swelling and ecchymosis surrounding the medial and lateral aspects of the incision. Calf is soft, no tenderness with palpation. Plantar flexion, dorsiflexion, EHL, FHL are intact. Sensory exam to light touch throughout the extremity is intact, dorsal pedis pulses 2+. - Labs CBC & Chem 7: 06/15/24 04:53 Labs: Abnormal Lab Results - Last 24 Hours (Table) 06/15/24 Range/Units 04:53 WBC 15.44 H (4.50-10.00) X 10*3/uL RBC 3.84 L (4.40-5.60) X 10*6/uL Hgb 12.4 L (13.0-17.0) g/dL Hct 37.1 L (39.6-50.0) % MCH 32.3 H (27.0-32.0) pg Immature Gran # 0.07 H (0.00-0.04) X 10*3/uL Neutrophils # 13.18 H (1.80-7.70) X 10*3/uL Lymphocytes # 0.89 L (0.90-5.00) X 10*3/uL Monocytes # 1.27 H (0.20-1.00) X 10*3/uL Eosinophils # 0.01 L (0.04-0.35) X 10*3/uL Assessment and Plan Assessment: 1. Right knee osteoarthritis - Postop day 1 status post right total knee arthroplasty Plan: 1. Right knee osteoarthritis - right total knee arthroplasty performed yesterday, 06/14/2024. Patient stable bedside this morning. Patient does have a walker home. Patient did do well with therapy. Discharge home today with health services. 2. Appreciate medical management 3. Pain management - [place] 4. DVT prophylaxis - Xarelto in hospital. Going home with Eliquis 2.5 mg twice a day 2 weeks 5. GI prophylaxis - senna 6. PT/OT - weightbearing as tolerated with walker 7. Encourage incentive spirometer use 8. Discharge planning - home today with health service Time with Patient: Less than 30
== END 2024-06-15 15:12 | disposition home health service (06) ==
LOC: OR 10:24 → 4SSUR 15:17 → OR 06-15 15:12
PROVIDERS: ATTEND Orthopaedic Surgery
DX: M17.11 Unilateral primary osteoarthritis, right knee (principal); E03.9 Hypothyroidism, unspecified; G89.18 Other acute postprocedural pain; Z79.01 Long term (current) use of anticoagulants; Z79.890 Hormone replacement therapy; Z87.891 Personal history of nicotine dependence